=== PATIENT | female | born 1980 | race Hispanic/Latino ===

== ENCOUNTER 2017-04-17 17:06 | Emergency (ER) | payer OTHER ==
[~2017-04-17] VITALS: Ht 160 cm; Wt 93.0 kg
[2017-04-17] MEDS ORDERED: LABETALOL HCL 5 MG/ML 20ML VIAL IV STA ×2 (19:15→20:26)
[2017-04-17] MEDS ORDERED: ONDANSETRON HCL INJ 2 MG/ML VIAL IV STA (20:19)
[2017-04-17] MEDS ORDERED: MORPHINE SULFATE 2 MG/ML SYR IV STA ×2 (20:19→23:22)
[2017-04-17] MEDS ORDERED: MAGNESIUM SULFATE 2 GM/50 ML IV ONE (23:30)
[2017-04-17] MEDS ORDERED: MAGNESIUM SULFATE 2GM/50ML 50 ML IV ONE (23:30)
[2017-04-18] MEDS ORDERED: MAGNESIUM SULF IV ONE (00:30)
[2017-04-18] MEDS ORDERED: [UNRECOGNIZED DRUG - OTHER] IV ONE (00:30)
[2017-04-18] MEDS ORDERED: MAGNESIUM SULFATE 2GM/50ML 50 ML IV ONE (00:30)
[2017-04-18 01:13] VITALS: BP 157/80
[2017-04-18] MEDS ORDERED: LABETALOL HCL 5 MG/ML 20ML VIAL IV STA (02:01)
[2017-04-18] MEDS ORDERED: METHYLDOPA500 MG (05:03)
[2017-04-18] MEDS ORDERED: ASPIR 8181 MG (05:05)
[2017-04-18] MEDS ORDERED: LABETALOL HCL100 MG PO (05:05)
== END 2017-04-18 01:15 | disposition short-term general hospital (02) ==
LOC: FSED 17:06
DX: R07.9 Chest pain, unspecified (principal); R06.02 Shortness of breath; J81.0 Acute pulmonary edema; J90 Pleural effusion, not elsewhere classified; I10 Essential (primary) hypertension
CPT/HCPCS: 99284; J2270; J2405; J3490

== ENCOUNTER 2018-05-11 19:50 | Emergency (ER) | payer OTHER ==
[~2018-05-11] VITALS: Ht 160 cm; Wt 79.6 kg
[~2018-05-11 19:50] MED LIST: ASPIR 8181 MG; LABETALOL HCL100 MG PO; METHYLDOPA500 MG
--- OUTSIDE RECORDS SUMMARY | 2018-05-11 19:54 | XMS REPORT | Summary of Care ---
Author Author [facility] [place] Organization [facility] [place] Address Unknown Phone Unavailable Encounter HQ Encntr_min(FIN) [id number] Date(s): 06/21/17 - 06/21/17 [facility] [address] [place] [phone] Encounter Diagnosis Precordial pain (Final) - 06/28/17 Discharge Disposition: Home or Self Care Attending Physician: Juan Bonds MD Vital Signs No data available for this section Problem List Condition Effective Dates Status Health Status Informant Gestational Active diabetes(Confirmed) Hypertension(Confirm Resolved ed) Gestational Active hypertension(Confirm ed) (Confirmed) 04/10/17 - 04/12/17 Resolved (Confirmed) 04/13/16 - 06/08/16 Resolved (Confirmed) 05/31/06 - 02/07/07 Resolved (Confirmed) 09/16/04 - 12/09/04 Resolved Allergies, Adverse Reactions, Alerts Substance Reaction Severity Status NKDA Active Medications No data available for this section Results No data available for this section Immunizations Given and Recorded Vaccine Date Status Refusal Reason influenza virus vaccine, inactivated 04/15/17 Given RhoGam (MAR Charting)1 04/13/17 Given diphtheria/pertussis, acel/tetanus adult 04/13/17 Given 1Result Comment: VERIFIED WITH NELDA POPEenglish as a second language instructor Procedure Date Related Diagnosis Body Site Status Arm repair 1990 Completed Social History Social History Type Response Alcohol Past Smoking Status Former smoker; Type: Cigarettes; Ready to change: Yes; Exposure to Tobacco Smoke None; Cigarette Smoking Last 365 Days No; Reg Smoking Cessation Counseling Yes; Number of years: 20; Started at age: 17.0; entered on: 04/10/17 Assessment and Plan No data available for this section
--- OUTSIDE RECORDS SUMMARY | 2018-05-11 19:54 | XMS REPORT | Summary of Care ---
Author Author [facility] Organization [facility] Address Unknown Phone Unavailable Encounter KATY Castro(DEREK) [id number] Date(s): 04/18/17 - 04/21/17 [facility] [address] [facility] provided by [facility] [place] [address]- Encounter Diagnosis Pre-existing hypertension with pre-eclampsia, complicating the puerperium (Final) - 04/27/17 Chronic pulmonary edema (Final) - Unspecified pre-existing hypertension complicating the puerperium (Final) - Other complications of the puerperium, not elsewhere classified (Final) - Discharge Disposition: Home or Self Care Attending Physician: Mora Abebe MD Admitting Physician: Mora Abebe MD Referring Physician: Physician, Non Associated MD Vital Signs 1 2 3 Most recent to oldest [Reference Range]: 160.02 cm (04/18/17 2:31 AM) Height 97.6 DegF (04/21/17 9:01 AM) 98.1 DegF (04/21/17 4:13 AM) 98.1 DegF (04/21/17 12:36 AM) Temperature Oral [96.4-99.1 DegF] 138/88 mmHg (04/21/17 9:01 AM) 114/71 mmHg (04/21/17 4:13 AM) 135/79 mmHg (04/21/17 12:36 AM) Blood Pressure [90-140/60-90 mmHg] 18 BRMIN (04/21/17 9:01 AM) 18 BRMIN (04/21/17 4:13 AM) 18 BRMIN (04/21/17 12:36 AM) Respiratory Rate [14-20 BRMIN] 73 bpm (04/21/17 9:01 AM) 73 bpm (04/21/17 4:13 AM) 80 bpm (04/21/17 12:36 AM) Peripheral Pulse Rate [60-100 bpm] 93.182 kg (04/18/17 2:31 AM) Weight 36.39 m2 (04/18/17 2:31 AM) Body Mass Index Problem List Condition Effective Dates Status Health Status Informant Gestational Active diabetes(Confirmed) Hypertension(Confirm Resolved ed) Gestational Active hypertension(Confirm ed) (Confirmed) 04/10/17 - 04/12/17 Resolved (Confirmed) 04/13/16 - 06/08/16 Resolved (Confirmed) 05/31/06 - 02/07/07 Resolved (Confirmed) 09/16/04 - 12/09/04 Resolved Allergies, Adverse Reactions, Alerts Substance Reaction Severity Status NKDA Active Medications acetaminophen 650 mg, Route: PO, Drug form: TAB, Q4H, Dosing Weight 93.182, kg, PRN Other -See Comment, Start date: 04/18/17 2:41:00 TITLE I TEACHER, Duration: 30 day, Stop date: 05/18/17 2:40:00 TITLE I TEACHER Start Date: 04/18/17 Stop Date: 04/18/17 Status: Discontinued acetaminophen-hydrocodone 325 mg-10 mg oral tablet 1 tab, Route: PO, Dosing Weight 93.182, kg, Q4H, PRN Pain Score 7-10, Start date : 04/18/17 2:41:00 TITLE I TEACHER, Duration: 30 day, Stop date: 05/18/17 2:40:00 TITLE I TEACHER Start Date: 04/18/17 Stop Date: 04/18/17 Status: Discontinued acetaminophen-hydrocodone 325 mg-5 mg oral tablet 1 tab, Route: PO, Drug Form: TAB, Dosing Weight 93.182, kg, Q4H, PRN Pain Score 4-6, Start date: 04/18/17 2:41:00 TITLE I TEACHER, Duration: 30 day, Stop date: 05/18/17 2:4 0:00 TITLE I TEACHER Notes: (Same as: [place] 325/5) Do not exceed 4gm/day of acetaminophen. Start Date: 04/18/17 Stop Date: 04/21/17 Status: Discontinued aspirin 81 mg tablet, enteric coated 81 mg, 1 tab, Route: PO, Drug form: ECTAB, Daily, Dosing Weight 93.182, kg, Star t date: 04/18/17 9:00:00 TITLE I TEACHER, Duration: 30 day, Stop date: 05/17/17 9:00:00 TITLE I TEACHER Notes: Do not crush or chew.(Same As: Ecotrin) Start Date: 04/18/17 Stop Date: 04/21/17 Status: Discontinued aspirin 81 mg tablet, enteric coated 81 mg=1 tab, PO, Daily, # 90 tab, 3 Refill(s) Start Date: 04/18/17 Stop Date: 04/21/17 Status: Discontinued bisacodyl 10 mg, 1 supp, Route: IN, Drug form: SUPP, PRN, Dosing Weight 93.182, kg, PRN Ot her -See Comment, Start date: 04/18/17 2:41:00 TITLE I TEACHER, Duration: 30 day, Stop date: 05/18/17 2:40:00 TITLE I TEACHER Notes: (Same As: Dulcolax, Bisco-Lax) Start Date: 04/18/17 Stop Date: 04/21/17 Status: Discontinued bisacodyl 15 mg, 3 tab, Route: PO, Drug form: ECTAB, Daily, Dosing Weight 93.182, kg, PRN Other -See Comment, Start date: 04/18/17 2:41:00 TITLE I TEACHER, Duration: 30 day, Stop sophia e: 05/18/17 2:40:00 TITLE I TEACHER Notes: (Same As: Dulcolax, Correctol) (Do Not Crush) "Do Not Crush" Start Date: 04/18/17 Stop Date: 04/21/17 Status: Discontinued calcium gluconate 1 gm, 10 mL, Route: IVP, Drug form: INJ, ONCE, Dosing Weight 93.182, kg, PRN Oth er -See Comment, Start date: 04/18/17 2:37:00 TITLE I TEACHER Notes: WASTE: F/P - Sink; E - Municipal Trash Bin Start Date: 04/18/17 Stop Date: 04/21/17 Status: Discontinued carboprost 250 microgram, 1 mL, Route: IM, Drug form: INJ, ONCALL, Dosing Weight 93.182, kg , Start date: 04/18/17 3:00:00 TITLE I TEACHER, Duration: 30 day, Stop date: 05/18/17 2:59:0 0 TITLE I TEACHER Notes: (Same As: Hemabate) Start Date: 04/18/17 Stop Date: 04/21/17 Status: Discontinued citric acid-sodium citrate 30 mL, Route: PO, Drug Form: SOLN, Dosing Weight 93.182, kg, ONCE, Start date: 0 04/18/17 2:41:00 TITLE I TEACHER, Stop date: 04/18/17 2:41:00 TITLE I TEACHER Notes: (Same As: Bicitra) Start Date: 04/18/17 Stop Date: 04/25/17 Status: Discontinued docusate 100 mg, 1 cap, Route: PO, Drug form: CAP, BID, Dosing Weight 93.182, kg, PRN Con stipation, Start date: 04/18/17 2:41:00 TITLE I TEACHER, Duration: 30 day, Stop date: 2:40:00 TITLE I TEACHER Notes: (Same as: Colace) (Do Not Crush) Start Date: 04/18/17 Stop Date: 04/21/17 Status: Discontinued ibuprofen 600 mg, 1 tab, Route: PO, Drug form: TAB, Q6H, Dosing Weight 93.182, kg, Start d ate: 04/18/17 6:00:00 TITLE I TEACHER, Duration: 30 day, Stop date: 05/18/17 0:00:00 TITLE I TEACHER Notes: (Same as: Motrin)"Do Not Crush" Take with food. Start Date: 04/18/17 Stop Date: 04/21/17 Status: Discontinued labetalol 20 mg, 4 mL, Route: IVP, Drug form: INJ, ONCE, Dosing Weight 93.182, kg, Start d ate: 04/18/17 2:33:00 TITLE I TEACHER, Stop date: 04/18/17 2:33:00 TITLE I TEACHER Start Date: 04/18/17 Stop Date: 04/18/17 Status: Completed labetalol 100 mg, 1 tab, Route: PO, Drug form: TAB, TID, Dosing Weight 93.182, kg, Start d ate: 04/18/17 9:00:00 TITLE I TEACHER, Duration: 30 day, Stop date: 05/17/17 17:00:00 TITLE I TEACHER Notes: With food. (Same as:Trandate, Normodyne) Start Date: 04/18/17 Stop Date: 04/19/17 Status: Discontinued labetalol 200 mg, 1 tab, Route: PO, Drug form: TAB, Q8H, Dosing Weight 93.182, kg, Start d ate: 04/20/17 16:00:00 TITLE I TEACHER, Duration: 30 day, Stop date: 05/20/17 8:00:00 TITLE I TEACHER Notes: With food. (Same as:Trandate, Normodyne) Start Date: 04/20/17 Stop Date: 04/21/17 Status: Discontinued labetalol 100 mg oral tablet 100 mg=1 tab, PO, TID, # 60 tab, 0 Refill(s) Start Date: 04/18/17 Stop Date: 04/21/17 Status: Discontinued labetalol 200 mg oral tablet 200 mg=1 tab, PO, Q8H, # 180 tab, 1 Refill(s), Pharmacy: [facility] Start Date: 04/21/17 Status: Ordered lanolin topical cream 1 appl, Route: TOP, PRN, Drug form: OINT, PRN Other -See Comment, Start date: 2:41:00 TITLE I TEACHER, Duration: 30 day, Stop date: 05/18/17 2:40:00 TITLE I TEACHER Notes: (Same as:Lanolin) Start Date: 04/18/17 Stop Date: 04/21/17 Status: Discontinued Lasix 20 mg, 2 mL, Route: IVP, Drug form: INJ, ONCE, Dosing Weight 93.182, kg, Start d ate: 04/18/17 9:06:00 TITLE I TEACHER, Stop date: 04/18/17 9:06:00 TITLE I TEACHER Notes: (Same as: Lasix) Start Date: 04/18/17 Stop Date: 04/18/17 Status: Completed LR IV 1,000 mL 1,000 mL, Rate: 40 ml/hr, Infuse over: 25 hr, Route: IV, Dosing Weight 93.182 kg , Total Volume: 1,000, Start date: 04/18/17 8:25:00 TITLE I TEACHER, Duration: 30 day, Stop date: 05/18/17 8:24:00 TITLE I TEACHER, 2.07, m2 Start Date: 04/18/17 Stop Date: 04/21/17 Status: Discontinued M-M-R II 0.5 mL, Route: SUB-Q, Drug Form: PDR/INJ, Dosing Weight 93.182, kg, ONCALL, Star t date: 04/18/17 3:00:00 TITLE I TEACHER, Duration: 1 doses or times Notes: (Same as: M-M-R II) (godffie-fnaxd-ygbaknu virus vaccine 0.5 ml INJ VL)WA CHEL: F/P - Red; E -Red GIVE PRIOR TO DISCHARGE Start Date: 04/18/17 Stop Date: 04/21/17 Status: Discontinued magnesium sulfate 20 gm/500 ml solution 20 gm 500 mL, Rate: 50 ml/hr, Infuse over: 10 hr, Route: IV, Dosing Weight 93.182 kg, Total Volume: 500, Start date: 04/18/17 2:37:00 TITLE I TEACHER, Duration: 30 day, Stop date : 05/18/17 2:36:00 TITLE I TEACHER, 2.07, m2 Notes: (Same as: MgSO4)WASTE: F/P - Sink; E - Municipal Trash Bin Start Date: 04/18/17 Stop Date: 04/21/17 Status: Discontinued methyldopa 500 mg oral tablet 500 mg, 2 tab, Route: PO, Drug form: TAB, TID, Dosing Weight 93.182, kg, Priorit y: STAT, Start date: 04/18/17 3:50:00 TITLE I TEACHER, Duration: 30 day, Stop date: 05/17/17 17:00:00 TITLE I TEACHER Notes: May interfere w/enteral feedings. (Same as:Aldomet) Start Date: 04/18/17 Stop Date: 04/19/17 Status: Discontinued methylergonovine 0.2 mg, 1 mL, Route: IM, Drug form: INJ, ONCALL, Dosing Weight 93.182, kg, Start date: 04/18/17 3:00:00 TITLE I TEACHER, Duration: 30 day, Stop date: 05/18/17 2:59:00 TITLE I TEACHER Notes: (Same as:Methergine) Start Date: 04/18/17 Stop Date: 04/21/17 Status: Discontinued metoclopramide 10 mg, 2 mL, Route: IVP, Drug form: INJ, Q6H, Dosing Weight 93.182, kg, PRN Naus ea & Vomiting, Start date: 04/18/17 2:41:00 TITLE I TEACHER, Duration: 30 day, Stop date: 05/18/17 2:40:00 TITLE I TEACHER Notes: (Same as: Reglan) Start Date: 04/18/17 Stop Date: 04/21/17 Status: Discontinued misoprostol 1,000 microgram, 5 tab, Route: IN, Drug form: TAB, ONCALL, Dosing Weight 93.182, kg, Start date: 04/18/17 3:00:00 TITLE I TEACHER, Duration: 30 day, Stop date: 05/18/17 2:5 9:00 TITLE I TEACHER Notes: (Same as:Cytotec) Take with food Start Date: 04/18/17 Stop Date: 04/21/17 Status: Discontinued morphine Sulfate 2 mg, Route: IVP, Q2H, Dosing Weight 93.182, kg, PRN Pain Score 7-10, Start date : 04/18/17 2:41:00 TITLE I TEACHER, Duration: 30 day, Stop date: 05/18/17 2:40:00 TITLE I TEACHER Start Date: 04/18/17 Stop Date: 04/18/17 Status: Discontinued Nifedical XL 60 mg, 1 tab, Route: PO, Drug form: ERTAB, Daily, Dosing Weight 93.182, kg, Star t date: 04/19/17 9:00:00 TITLE I TEACHER, Duration: 30 day, Stop date: 05/18/17 9:00:00 TITLE I TEACHER Notes: (Same as: Adalat CC, Procardia XL) Give on empty stomach. Take 1 hour be fore or 2 hours after meal; "Avoid grapefruit and grapefruit juice". Do not cru sh Start Date: 04/19/17 Stop Date: 04/20/17 Status: Discontinued Nifedical XL 30 mg, 1 tab, Route: PO, Drug form: ERTAB, ONCE, Dosing Weight 93.182, kg, Prior ity: STAT, Start date: 04/20/17 8:50:00 TITLE I TEACHER, Stop date: 04/20/17 8:50:00 TITLE I TEACHER Notes: (Same as: Adalat CC, Procardia XL) Give on empty stomach. Take 1 hour be fore or 2 hours after meal; "Avoid grapefruit and grapefruit juice". Do not cru sh Start Date: 04/20/17 Stop Date: 04/20/17 Status: Completed ondansetron 4 mg, 2 mL, Route: IVP, Drug form: INJ, Q8H, Dosing Weight 93.182, kg, PRN Nause a & Vomiting, Start date: 04/18/17 2:41:00 TITLE I TEACHER, Duration: 30 day, Stop date: 05/18/17 2:40:00 TITLE I TEACHER Notes: (Same as: Tisha) MEDICATION WASTE Product Size: 4 mgProduct Was salvador: ___ mg Start Date: 04/18/17 Stop Date: 04/21/17 Status: Discontinued oxytocin 30 units in NS 500ml (Titrate) IV 30 unit 30 unit, 500 mL, Rate: 42 ml/hr, Infuse over: 11.9 hr, Dosing Weight 93.182, kg, Route: IV, Total Volume: 500 mL, Start date: 04/18/17 2:41:00 TITLE I TEACHER, Duration: 1 doses or times, Stop date: 04/18/17 14:34:00 TITLE I TEACHER, Replace Every: 11.9 hr Start Date: 04/18/17 Stop Date: 04/18/17 Status: Completed PNV-Total 1 cap, PO, Daily, 0 Refill(s) Start Date: 04/18/17 Stop Date: 04/21/17 Status: Discontinued Multivitamins oral tablet 1 tab, Route: PO, Drug Form: TAB, Dosing Weight 93.182, kg, Daily, Start date: 0 04/18/17 9:00:00 TITLE I TEACHER, Duration: 30 day, Stop date: 05/17/17 9:00:00 TITLE I TEACHER Start Date: 04/18/17 Stop Date: 04/21/17 Status: Discontinued Procardia XL 90 mg oral tablet, extended release 90 mg, 1 tab, Route: PO, Drug form: ERTAB, Daily, Dosing Weight 93.182, kg, Star t date: 04/21/17 9:00:00 TITLE I TEACHER, Duration: 30 day, Stop date: 05/20/17 9:00:00 TITLE I TEACHER Notes: (Same as: Adalat CC,Procardia XL)"Do Not Crush" "Avoid grapefruit and gr apefruit juice" Start Date: 04/21/17 Stop Date: 04/21/17 Status: Discontinued Procardia XL 90 mg oral tablet, extended release 90 mg=1 tab, PO, Daily, 0 Refill(s) Start Date: 04/21/17 Status: Ordered Saline Flush 0.9% 10 ml, Route: IVP, Drug Form: INJ, Dosing Weight 93.182, kg, Q12H, Start date: 0 04/18/17 9:00:00 TITLE I TEACHER, Duration: 30 day, Stop date: 05/17/17 21:00:00 TITLE I TEACHER Notes: (Same as: BD Posiflush) Start Date: 04/18/17 Stop Date: 04/21/17 Status: Discontinued Saline Flush 0.9% 10 ml, Route: IVP, Drug Form: INJ, Dosing Weight 93.182, kg, PRN, PRN Line Flush , Start date: 04/18/17 2:41:00 TITLE I TEACHER, Duration: 30 day, Stop date: 05/18/17 2:40:0 0 TITLE I TEACHER Notes: (Same as: BD Posiflush) Start Date: 04/18/17 Stop Date: 04/21/17 Status: Discontinued simethicone 160 mg, 2 tab, Route: PO, Drug form: CHEWTAB, Q8H, Dosing Weight 93.182, kg, PRN Gas, Start date: 04/18/17 2:41:00 TITLE I TEACHER, Duration: 30 day, Stop date: 05/18/17 2: 40:00 TITLE I TEACHER Notes: (Same as: Mylicon) Start Date: 04/18/17 Stop Date: 04/21/17 Status: Discontinued terbutaline 0.25 mg, 0.25 mL, Route: SUB-Q, Drug form: INJ, ONCALL, Dosing Weight 93.182, kg , PRN Other -See Comment, Start date: 04/18/17 2:41:00 TITLE I TEACHER, Duration: 1 doses or times, Stop date: Limited # of times Notes: DO NOT USE IN WIND SITE MANAGER AREA(Same As: Lefty) Start Date: 04/18/17 Stop Date: 04/21/17 Status: Discontinued tetanus/diphth/pertussis (Tdap) adult/adol 5 units-2 units-15.5 mcg/0.5 mL intra muscular suspension 0.5 mL, Route: IM, Drug Form: SUSP, Dosing Weight 93.182, kg, ONCALL, Start date : 04/18/17 3:00:00 TITLE I TEACHER, Duration: 1 doses or times Notes: (Tdap ) For Adolecent and Adult use For IM Use. Same as: Adacel (Tdap) Start Date: 04/18/17 Stop Date: 04/21/17 Status: Discontinued zolpidem 5 mg, 1 tab, Route: PO, Drug form: TAB, Bedtime, Dosing Weight 93.182, kg, PRN I nsomnia, Start date: 04/18/17 2:41:00 TITLE I TEACHER, Duration: 30 day, Stop date: 05/18/17 2:40:00 TITLE I TEACHER Notes: (Same As: Leonidesien) Start Date: 04/18/17 Stop Date: 04/21/17 Status: Discontinued Results BLOOD BANK RESULTS Most recent to 1 2 oldest [Reference Range]: ABO/Rh O NEG *Unknown* (04/18/17 2:56 AM) Antibody Scrn Positive (04/18/17 2:56 AM) CHEM PANEL Most recent to 1 2 oldest [Reference Range]: Creatinine Lvl 0.80 mg/dL 0.82 mg/dL [0.50-1.40 mg/dL] (04/19/17 6:42 AM) (04/18/17 2:56 AM) eGFR 96 mL/min/1.73m2 1 92 mL/min/1.73m2 2 *NA* *NA* (04/19/17 6:42 AM) (04/18/17 2:56 AM) Uric Acid [2.5-7.0 8.1 mg/dL 7.5 mg/dL mg/dL] *HI* *HI* (04/19/17 6:42 AM) (04/18/17 2:56 AM) ALT [0-65 unit/L] 43 unit/L 50 unit/L (04/19/17 6:42 AM) (04/18/17 2:56 AM) AST [0-37 unit/L] 18 unit/L 33 unit/L (04/19/17 6:42 AM) (04/18/17 2:56 AM) LDH [98-192 unit/L] 281 unit/L 289 unit/L *HI* *HI* (04/19/17 6:42 AM) (04/18/17 2:56 AM) 1Result Comment: The eGFR is calculated using the CKD-EPI formula. In most young, healthy individuals the eGFR will be >90 mL/min/1.73m2. The eGFR declines with age. An eGFR of 60-89 may be normal in some populations, particularly the elderly, for whom the CKD-EPI formula has not been extensively validated. Use of the eGFR is not recommended in the following populations: Individuals with unstable creatinine concentrations, including patients and those with serious co-morbid conditions. Patients with extremes in muscle mass or diet. The data above are obtained from the National Kidney Disease Education Program ( NKDEP) which additionally recommends that when the eGFR is used in patients with extremes of body mass index for purposes of drug dosing, the eGFR should be mul tiplied by the estimated BMI. 2Result Comment: The eGFR is calculated using the CKD-EPI formula. In most young, healthy individuals the eGFR will be >90 mL/min/1.73m2. The eGFR declines with age. An eGFR of 60-89 may be normal in some populations, particularly the elderly, for whom the CKD-EPI formula has not been extensively validated. Use of the eGFR is not recommended in the following populations: Individuals with unstable creatinine concentrations, including patients and those with serious co-morbid conditions. Patients with extremes in muscle mass or diet. The data above are obtained from the National Kidney Disease Education Program ( NKDEP) which additionally recommends that when the eGFR is used in patients with extremes of body mass index for purposes of drug dosing, the eGFR should be mul tiplied by the estimated BMI. HEMATOLOGY Most recent to 1 2 oldest [Reference Range]: WBC [3.7-10.4 K/CMM] 6.3 K/CMM 8.8 K/CMM (04/19/17 6:42 AM) (04/18/17 2:56 AM) RBC [4.20-5.40 3.77 M/CMM 3.56 M/CMM M/CMM] *LOW* *LOW* (04/19/17 6:42 AM) (04/18/17 2:56 AM) Hgb [12.0-16.0 g/dL] 10.8 g/dL 10.1 g/dL *LOW* *LOW* (04/19/17 6:42 AM) (04/18/17 2:56 AM) Hct [36.0-48.0 %] 31.3 % 29.9 % *LOW* *LOW* (04/19/17 6:42 AM) (04/18/17 2:56 AM) MCV [80.0-98.0 fL] 82.9 fL 84.0 fL (04/19/17 6:42 AM) (04/18/17 2:56 AM) MCH [27.0-31.0 pg] 28.6 pg 28.4 pg (04/19/17 6:42 AM) (04/18/17 2:56 AM) MCHC [32.0-36.0 34.5 g/dL 33.9 g/dL g/dL] (04/19/17 6:42 AM) (04/18/17 2:56 AM) RDW [11.5-14.5 %] 14.4 % 14.4 % (04/19/17 6:42 AM) (04/18/17 2:56 AM) MPV [7.4-10.4 fL] 7.3 fL 7.6 fL *LOW* (04/18/17 2:56 AM) (04/19/17 6:42 AM) Platelet [133-450 324 K/CMM 318 K/CMM K/CMM] (04/19/17 6:42 AM) (04/18/17 2:56 AM) Segs [45.0-75.0 %] 61.7 % 65.3 % (04/19/17 6:42 AM) (04/18/17 2:56 AM) Lymphocytes 22.7 % 21.0 % [20.0-40.0 %] (04/19/17 6:42 AM) (04/18/17 2:56 AM) Monocytes [2.0-12.0 11.1 % 10.6 % %] (04/19/17 6:42 AM) (04/18/17 2:56 AM) Eosinophils [0.0-4.0 4.0 % 2.7 % %] (04/19/17 6:42 AM) (04/18/17 2:56 AM) Basophils [0.0-1.0 0.5 % 0.4 % %] (04/19/17 6:42 AM) (04/18/17 2:56 AM) Segs-Bands # 3.9 K/CMM 5.8 K/CMM [1.5-8.1 K/CMM] (04/19/17 6:42 AM) (04/18/17 2:56 AM) Lymphocytes # 1.4 K/CMM 1.9 K/CMM [1.0-5.5 K/CMM] (04/19/17 6:42 AM) (04/18/17 2:56 AM) Monocytes # [0.0-0.8 0.7 K/CMM 0.9 K/CMM K/CMM] (04/19/17 6:42 AM) *HI* (04/18/17 2:56 AM) Eosinophils # 0.3 K/CMM 0.2 K/CMM [0.0-0.5 K/CMM] (04/19/17 6:42 AM) (04/18/17 2:56 AM) RBC Morph Normal (04/19/17 6:42 AM) Polychrom slight *NA* (04/18/17 2:56 AM) Toxic Gran slight *NA* (04/18/17 2:56 AM) Plt Morph Normal (04/19/17 6:42 AM) Immunizations Given and Recorded Vaccine Date Status Refusal Reason influenza virus vaccine, inactivated 04/15/17 Given RhoGam (MAR Charting)1 04/13/17 Given diphtheria/pertussis, acel/tetanus adult 04/13/17 Given 1Result Comment: VERIFIED WITH MORA POPEsales representative health insurance Procedure Date Related Diagnosis Body Site Status [...]
--- OUTSIDE RECORDS SUMMARY | 2018-05-11 19:54 | XMS REPORT | Summary of Care ---
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, controlled by oral hypoglycemic hany gs (Final) - Pre-existing essential hypertension complicating childbirth (Final) - Single live (Final) - Secondary uterine inertia (Final) - 34 weeks gestation of (Final) - Obstructed labor due to fetopelvic disproportion, unspecified (Final) - Encounter for immunization (Final) - Discharge Disposition: Home or Self Care Attending Physician: Maggy Marmolejo MD Admitting Physician: Maggy Marmolejo MD Vital Signs 1 2 3 Most recent to oldest [Reference Range]: 157.48 cm (04/10/17 11:51 AM) Height 98.2 DegF (04/15/17 4:56 PM) 97.4 DegF (04/15/17 9:00 AM) 98.1 DegF (04/15/17 4:10 AM) Temperature Oral [96.4-99.1 DegF] 120/82 mmHg (04/15/17 4:56 PM) 132/87 mmHg (04/15/17 9:00 AM) 145/92 mmHg *HI* (04/15/17 4:10 AM) Blood Pressure [90-140/60-90 mmHg] 18 BRMIN (04/15/17 4:56 PM) 18 BRMIN (04/15/17 9:00 AM) 18 BRMIN (04/15/17 4:10 AM) Respiratory Rate [14-20 BRMIN] 67 bpm (04/15/17 4:56 PM) 81 bpm (04/15/17 9:00 AM) 75 bpm (04/15/17 4:10 AM) Peripheral Pulse Rate [60-100 bpm] 96.364 kg (04/10/17 11:51 AM) Weight 38.86 m2 (04/10/17 11:51 AM) Body Mass Index Problem List Condition Effective Dates Status Health Status Informant Gestational Active diabetes(Confirmed) Hypertension(Confirm Resolved ed) Gestational Active hypertension(Confirm ed) (Confirmed) 04/10/17 - 04/12/17 Resolved (Confirmed) 04/13/16 - 06/08/16 Resolved (Confirmed) 05/31/06 - 02/07/07 Resolved (Confirmed) 09/16/04 - 12/09/04 Resolved Allergies, Adverse Reactions, Alerts Substance Reaction Severity Status NKDA Active Medications acetaminophen 1,000 mg, 2 tab, Route: PO, Drug form: TAB, Q6H, Dosing Weight 96.364, kg, Prior ity: NOW, Start date: 04/12/17 16:04:00 PROPERTY SUPERVISOR, Duration: 24 hr, Stop date: 8 12:00:00 PROPERTY SUPERVISOR Notes: Max acetaminophen 4000 mg/day (4 gm/day). (Same as: Tylenol Extra Streng th) Start Date: 04/12/17 Stop Date: 04/13/17 Status: Completed acetaminophen 650 mg, 2 tab, Route: PO, Drug form: TAB, Q4H, Dosing Weight 96.364, kg, PRN Oth er -See Comment, Start date: 04/12/17 17:03:00 PROPERTY SUPERVISOR, Duration: 30 day, Stop date: 05/12/17 17:02:00 PROPERTY SUPERVISOR Notes: Do not exceed 4 gm/day. (Same as: Tylenol) Start Date: 04/12/17 Stop Date: 04/12/17 Status: Discontinued acetaminophen (ANES) 10 mg Route: IV, Drug form: INJ, Start date: 04/12/17 15:54:00 PROPERTY SUPERVISOR, Stop date: 8 16:54:00 PROPERTY SUPERVISOR Start Date: 04/12/17 Stop Date: 04/12/17 Status: Completed acetaminophen-hydrocodone 325 mg-10 mg oral tablet 1 tab, Route: PO, Drug Form: TAB, Dosing Weight 96.364, kg, Q4H, PRN Pain Score 7-10, Start date: 04/13/17 12:01:00 PROPERTY SUPERVISOR, Duration: 30 day, Stop date: 05/13/17 2:00:00 PROPERTY SUPERVISOR Notes: Do not exceed 4gm/day of acetaminophen. (Same as: [place] 325/10) Start Date: 04/13/17 Stop Date: 04/15/17 Status: Discontinued acetaminophen-hydrocodone 325 mg-10 mg oral tablet 1 tab, Route: PO, Drug Form: TAB, Dosing Weight 96.364, kg, Q4H, PRN Pain Score 7-10, Start date: 04/12/17 17:03:00 PROPERTY SUPERVISOR, Duration: 30 day, Stop date: 05/12/17 7:02:00 PROPERTY SUPERVISOR Notes: Do not exceed 4gm/day of acetaminophen. (Same as: [place] 325/10) Start Date: 04/12/17 Stop Date: 04/12/17 Status: Discontinued acetaminophen-hydrocodone 325 mg-10 mg oral tablet 1 tab, Route: PO, Drug Form: TAB, Dosing Weight 96.364, kg, Q4H, PRN Pain Score 7-10, Start date: 04/13/17 7:53:00 PROPERTY SUPERVISOR, Duration: 30 day, Stop date: 05/13/17 7: 52:00 PROPERTY SUPERVISOR Notes: Do not exceed 4gm/day of acetaminophen. (Same as: [place] 325/10) Start Date: 04/13/17 Stop Date: 04/15/17 Status: Discontinued acetaminophen-hydrocodone 325 mg-5 mg oral tablet 1 tab, Route: PO, Drug Form: TAB, Dosing Weight 96.364, kg, Q4H, PRN Pain Score 4-6, Start date: 04/13/17 12:01:00 PROPERTY SUPERVISOR, Duration: 30 day, Stop date: 05/13/17 12 :00:00 PROPERTY SUPERVISOR Notes: (Same as: [place] 325/5) Do not exceed 4gm/day of acetaminophen. Start Date: 04/13/17 Stop Date: 04/15/17 Status: Discontinued acetaminophen-hydrocodone 325 mg-5 mg oral tablet 1 tab, Route: PO, Drug Form: TAB, Dosing Weight 96.364, kg, Q4H, PRN Pain Score 4-6, Start date: 04/12/17 17:03:00 PROPERTY SUPERVISOR, Duration: 30 day, Stop date: 05/12/17 17 :02:00 PROPERTY SUPERVISOR Notes: (Same as: [place] 325/5) Do not exceed 4gm/day of acetaminophen. Start Date: 04/12/17 Stop Date: 04/12/17 Status: Discontinued acetaminophen-hydrocodone 325 mg-5 mg oral tablet 1 tab, Route: PO, Drug Form: TAB, Dosing Weight 96.364, kg, Q4H, PRN Pain Score 4-6, Start date: 04/13/17 7:53:00 PROPERTY SUPERVISOR, Duration: 30 day, Stop date: 05/13/17 7:5 2:00 PROPERTY SUPERVISOR Notes: (Same as: [place] 325/5) Do not exceed 4gm/day of acetaminophen. Start Date: 04/13/17 Stop Date: 04/15/17 Status: Discontinued acetaminophen-hydrocodone 325 mg-5 mg oral tablet 2 tab, Route: PO, Drug Form: TAB, Dosing Weight 96.364, kg, Q4H, PRN Pain Score 7-10, Start date: 04/11/17 20:34:00 PROPERTY SUPERVISOR, Duration: 30 day, Stop date: 05/11/17 2 0:33:00 PROPERTY SUPERVISOR Notes: (Same as: [place] 325/5) Do not exceed 4gm/day of acetaminophen. Start Date: 04/11/17 Stop Date: 04/12/17 Status: Discontinued acetaminophen-hydrocodone 325 mg-5 mg oral tablet 1 tab, Route: PO, Drug Form: TAB, Dosing Weight 96.364, kg, Q4H, PRN Pain Score 4-6, Start date: 04/11/17 20:34:00 PROPERTY SUPERVISOR, Duration: 30 day, Stop date: 05/11/17 20 :33:00 PROPERTY SUPERVISOR Notes: (Same as: [place] 325/5) Do not exceed 4gm/day of acetaminophen. Start Date: 04/11/17 Stop Date: 04/12/17 Status: Discontinued aspirin 81 mg tablet, enteric coated 81 mg, 1 tab, Route: PO, Drug form: ECTAB, Daily, Dosing Weight 96.364, kg, Star t date: 04/11/17 9:00:00 PROPERTY SUPERVISOR, Duration: 30 day, Stop date: 05/10/17 9:00:00 PROPERTY SUPERVISOR Notes: Do not crush or chew.(Same As: Ecotrin) Start Date: 04/11/17 Stop Date: 04/15/17 Status: Discontinued azithromycin (ANES) 500 mg Route: IV, Drug form: INJ, Start date: 04/12/17 16:02:00 PROPERTY SUPERVISOR, Stop date: 8 17:02:00 PROPERTY SUPERVISOR Start Date: 04/12/17 Stop Date: 04/12/17 Status: Completed benzocaine-menthol topical 1 lozenge, Route: PO, Drug Form: NGA, Dosing Weight 96.364, kg, PRN, PRN Sore Th roat, Start date: 04/12/17 17:03:00 PROPERTY SUPERVISOR, Duration: 30 day, Stop date: 05/12/17 1 7:02:00 PROPERTY SUPERVISOR Notes: Cepacol lozengesDispense 1 box=16 lozenges (Same As: Cepacol Lozenges) Start Date: 04/12/17 Stop Date: 04/15/17 Status: Discontinued bisacodyl 10 mg, 1 supp, Route: AL, Drug form: SUPP, PRN, Dosing Weight 96.364, kg, PRN Ot her -See Comment, Start date: 04/12/17 17:03:00 PROPERTY SUPERVISOR, Duration: 30 day, Stop date : 05/12/17 17:02:00 PROPERTY SUPERVISOR Notes: (Same As: Dulcolax, Bisco-Lax) Start Date: 04/12/17 Stop Date: 04/13/17 Status: Discontinued bisacodyl 15 mg, 3 tab, Route: PO, Drug form: ECTAB, Daily, Dosing Weight 96.364, kg, PRN Other -See Comment, Start date: 04/13/17 7:53:00 PROPERTY SUPERVISOR, Duration: 30 day, Stop sophia e: 05/13/17 7:52:00 PROPERTY SUPERVISOR Notes: (Same As: Dulcolax, Correctol) (Do Not Crush) "Do Not Crush" Start Date: 04/13/17 Stop Date: 04/15/17 Status: Discontinued bisacodyl 10 mg, 1 supp, Route: AL, Drug form: SUPP, PRN, Dosing Weight 96.364, kg, PRN Ot her -See Comment, Start date: 04/13/17 7:53:00 PROPERTY SUPERVISOR, Duration: 30 day, Stop date: 05/13/17 7:52:00 PROPERTY SUPERVISOR Notes: (Same As: Dulcolax, Bisco-Lax) Start Date: 04/13/17 Stop Date: 04/15/17 Status: Discontinued butorphanol 2 mg, 1 mL, Route: IVP, Drug form: INJ, Q2H, Dosing Weight 96.364, kg, PRN Pain Score 7-10, Start date: 04/11/17 20:34:00 PROPERTY SUPERVISOR, Duration: 30 day, Stop date: 04/27 08/11 20:33:00 PROPERTY SUPERVISOR Notes: (Same As: Stadol) MEDICATION WASTE Product Size: 2 mgProduct Was salvador: ___ mg Start Date: 04/11/17 Stop Date: 04/12/17 Status: Discontinued butorphanol 1 mg, 1 mL, Route: IVP, Drug form: INJ, Q2H, Dosing Weight 96.364, kg, PRN Pain Score 4-6, Start date: 04/11/17 20:34:00 PROPERTY SUPERVISOR, Duration: 30 day, Stop date: 05/11 20:33:00 PROPERTY SUPERVISOR Notes: (Same As: Stadol) Start Date: 04/11/17 Stop Date: 04/12/17 Status: Discontinued carboprost 250 microgram, 1 mL, Route: IM, Drug form: INJ, ONCALL, Dosing Weight 96.364, kg , Start date: 04/11/17 21:00:00 PROPERTY SUPERVISOR, Duration: 30 day, Stop date: 05/11/17 20:59 :00 PROPERTY SUPERVISOR Notes: (Same As: Hemabate) Start Date: 04/11/17 Stop Date: 04/12/17 Status: Discontinued ceFAZolin (ANES) Route: IV, Drug form: INJ, ONCE, Stop date: 04/12/17 15:42:00 PROPERTY SUPERVISOR Start Date: 04/12/17 Stop Date: 04/12/17 Status: Completed Cervidil 10 mg, 1 supp, Route: VAG, Drug form: SUPP, ONCE, Dosing Weight 96.364, kg, Star t date: 04/11/17 20:34:00 PROPERTY SUPERVISOR, Stop date: 04/11/17 20:34:00 PROPERTY SUPERVISOR Notes: (Same as: Cervidil) Start Date: 04/11/17 Stop Date: 04/11/17 Status: Completed citric acid-sodium citrate 30 mL, Route: PO, Drug Form: SOLN, Dosing Weight 96.364, kg, ONCALL, Start date: 04/11/17 21:00:00 PROPERTY SUPERVISOR, Duration: 30 day, Stop date: 05/11/17 20:59:00 PROPERTY SUPERVISOR Notes: (Same As: Bicitra) Start Date: 04/11/17 Stop Date: 04/12/17 Status: Discontinued D5LR 1,000 mL 1,000 mL, Rate: 125 ml/hr, Infuse over: 8 hr, Route: IV, Dosing Weight 96.364 kg , Total Volume: 1,000, Start date: 04/12/17 13:09:00 PROPERTY SUPERVISOR, Duration: 30 day, Stop date: 05/12/17 13:08:00 PROPERTY SUPERVISOR, 2.09, m2 Start Date: 04/12/17 Stop Date: 04/15/17 Status: Discontinued Dermoplast 20% topical spray 1 spray, Route: TOP, PRN, Drug form: SPRY, PRN Irritation, Start date: 04/13/17 7:53:00 PROPERTY SUPERVISOR, Duration: 30 day, Stop date: 05/13/17 7:52:00 PROPERTY SUPERVISOR Notes: (Same As: Dermoplast)WASTE: Aerosol - Return to Pharmacy FOR EXTERNAL US E ONLY Start Date: 04/13/17 Stop Date: 04/15/17 Status: Discontinued dexamethasone 4 mg, 1 mL, Route: IVP, Drug form: INJ, Q6H, Dosing Weight 96.364, kg, PRN Nause a & Vomiting, Start date: 04/12/17 16:04:00 PROPERTY SUPERVISOR, Duration: 24 hr, Stop date: 04/13/17 16:03:00 PROPERTY SUPERVISOR Notes: Concentration: 4mg/ml Start Date: 04/12/17 Stop Date: 04/13/17 Status: Completed diphenhydrAMINE 12.5 mg, 5 mL, Route: PO, Drug form: LIQ, Q6H, Dosing Weight 96.364, kg, PRN Itc leatha, Start date: 04/12/17 16:04:00 PROPERTY SUPERVISOR, Duration: 30 day, Stop date: 05/12/17 1 6:03:00 PROPERTY SUPERVISOR Notes: (Same as: Benadryl) Start Date: 04/12/17 Stop Date: 04/15/17 Status: Discontinued docusate 100 mg, 1 cap, Route: PO, Drug form: CAP, BID, Dosing Weight 96.364, kg, PRN Con stipation, Start date: 04/12/17 17:03:00 PROPERTY SUPERVISOR, Duration: 30 day, Stop date: 05/12 17:02:00 PROPERTY SUPERVISOR Notes: (Same as: Colace) (Do Not Crush) Start Date: 04/12/17 Stop Date: 04/13/17 Status: Discontinued docusate 100 mg, 1 cap, Route: PO, Drug form: CAP, BID, Dosing Weight 96.364, kg, PRN Con stipation, Start date: 04/13/17 7:53:00 PROPERTY SUPERVISOR, Duration: 30 day, Stop date: 7:52:00 PROPERTY SUPERVISOR Notes: (Same as: Colace) (Do Not Crush) Start Date: 04/13/17 Stop Date: 04/15/17 Status: Discontinued famotidine 20 mg, 2 mL, Route: IVP, Drug form: INJ, ONCALL, Dosing Weight 96.364, kg, Start date: 04/11/17 21:00:00 PROPERTY SUPERVISOR, Duration: 30 day, Stop date: 05/11/17 20:59:00 PROPERTY SUPERVISOR Notes: (Same as: Pepcid)Can be dilute in 5-10cc NS IVP: Slow IV push over at le ast 2 minutes. Start Date: 04/11/17 Stop Date: 04/12/17 Status: Discontinued famotidine (ANES) Route: IV, Drug form: INJ, ONCE, Stop date: 04/12/17 15:42:00 PROPERTY SUPERVISOR Start Date: 04/12/17 Stop Date: 04/12/17 Status: Completed glyBURIDE 5 mg, 1 tab, Route: PO, Drug form: TAB, BID, Dosing Weight 96.364, kg, Start sophia e: 04/10/17 17:00:00 PROPERTY SUPERVISOR, Duration: 30 day, Stop date: 05/10/17 9:00:00 PROPERTY SUPERVISOR Notes: Non-Formulary(Same as: Micronase, Diabeta) Take with meals. Start Date: 04/10/17 Stop Date: 04/11/17 Status: Discontinued glyBURIDE 5 mg, 1 tab, Route: PO, Drug form: TAB, Daily, Dosing Weight 96.364, kg, Start d ate: 04/11/17 9:00:00 PROPERTY SUPERVISOR, Duration: 30 day, Stop date: 05/10/17 9:00:00 PROPERTY SUPERVISOR Notes: Non-Formulary(Same as: Micronase, Diabeta) Take with meals. Start Date: 04/11/17 Stop Date: 04/13/17 Status: Discontinued ibuprofen 600 mg, 1 tab, Route: PO, Drug form: TAB, Q6H, Dosing Weight 96.364, kg, Start d ate: 04/12/17 18:00:00 PROPERTY SUPERVISOR, Duration: 30 day, Stop date: 05/12/17 12:00:00 PROPERTY SUPERVISOR Notes: (Same as: Motrin)"Do Not Crush" Take with food. Start Date: 04/12/17 Stop Date: 04/15/17 Status: Discontinued ibuprofen 600 mg, 1 tab, Route: PO, Drug form: TAB, Q6H, Dosing Weight 96.364, kg, Start d ate: 04/13/17 12:00:00 PROPERTY SUPERVISOR, Duration: 30 day, Stop date: 05/13/17 6:00:00 PROPERTY SUPERVISOR Notes: (Same as: Motrin)"Do Not Crush" Take with food. Start Date: 04/13/17 Stop Date: 04/15/17 Status: Discontinued ibuprofen 600 mg, 1 tab, Route: PO, Drug form: TAB, Q6H, Dosing Weight 96.364, kg, PRN Oth er -See Comment, Start date: 04/11/17 20:34:00 PROPERTY SUPERVISOR, Duration: 30 day, Stop date: 05/11/17 20:33:00 PROPERTY SUPERVISOR Notes: (Same as: Motrin)"Do Not Crush" Take with food. Start Date: 04/11/17 Stop Date: 04/12/17 Status: Discontinued influenza virus vaccine, inactivated 0.5 mL, Route: IM, Drug Form: SUSP, Daily, Start date: 04/11/17 9:00:00 PROPERTY SUPERVISOR, Dur ation: 1 doses or times, Stop date: 04/11/17 9:00:00 PROPERTY SUPERVISOR Notes: (Same as: Fluzone Quadrivalent, Fluarix Quadrivalent)For 3 years of age a nd older (0.5 mL IM)Shake well before use Start Date: 04/11/17 Stop Date: 04/15/17 Status: Deleted influenza virus vaccine, inactivated 0.5 mL, Route: IM, Drug Form: SUSP, Daily, Start date: 04/15/17 9:05:00 PROPERTY SUPERVISOR, Dur ation: 1 doses or times, Stop date: 04/15/17 9:05:00 PROPERTY SUPERVISOR Notes: (Same as: Fluzone Quadrivalent, Fluarix Quadrivalent)For 3 years of age a nd older (0.5 mL IM)Shake well before use Start Date: 04/15/17 Stop Date: 04/15/17 Status: Completed ketOROLAC 30 mg, 1 mL, Route: IVP, Drug form: INJ, Q6H, Dosing Weight 96.364, kg, PRN Pain Score 4-6, Start date: 04/12/17 16:04:00 PROPERTY SUPERVISOR, Duration: 24 hr, Stop date: 04/13 16:03:00 PROPERTY SUPERVISOR Notes: (Same as:Toradol) IV bolus must be given >15 seconds. Give IM administration slowly and deeply into the muscle.Not for use > 4 days MEDICATION WASTE Product Size: 30 mgProduct Wasted: ___ mg Start Date: 04/12/17 Stop Date: 04/13/17 Status: Completed labetalol 100 mg, 1 tab, Route: PO, Drug form: TAB, TID, Dosing Weight 96.364, kg, Start d ate: 04/12/17 17:00:00 PROPERTY SUPERVISOR, Duration: 30 day, Stop date: 05/12/17 13:00:00 PROPERTY SUPERVISOR Notes: With food. (Same as:Trandate, Normodyne) Start Date: 04/12/17 Stop Date: 04/12/17 Status: Discontinued labetalol 300 mg, 1 tab, Route: PO, Drug form: TAB, TID, Dosing Weight 96.364, kg, Start d ate: 04/12/17 18:00:00 PROPERTY SUPERVISOR, Duration: 30 day, Stop date: 05/12/17 10:00:00 PROPERTY SUPERVISOR Notes: With food. (Same as:Trandate, Normodyne) Start Date: 04/12/17 Stop Date: 04/15/17 Status: Discontinued labetalol 100 mg, 1 tab, Route: PO, Drug form: TAB, TID, Dosing Weight 96.364, kg, Start d ate: 04/10/17 13:00:00 PROPERTY SUPERVISOR, Duration: 30 day, Stop date: 05/10/17 9:00:00 PROPERTY SUPERVISOR Notes: With food. (Same as:Trandate, Normodyne) Start Date: 04/10/17 Stop Date: 04/12/17 Status: Discontinued Lactated Ringers (Bolus) IV 1,000 mL, 1,000 ml/hr, Infuse Over: 1 hr, Route: IV, 1,000, Drug form: INJ, ONCE , Dosing Weight 96.364 kg, Start date: 04/11/17 20:34:00 PROPERTY SUPERVISOR, Stop date: 8 20:34:00 PROPERTY SUPERVISOR, Bolus for regional anesthesia per unit protocol Start Date: 04/11/17 Stop Date: 04/12/17 Status: Discontinued Lactated Ringers Injection IV (ANES) 1000 mL Route: IV, Total Volume: 1,000, Start date: 04/12/17 14:40:00 PROPERTY SUPERVISOR, Stop date: 15:40:00 PROPERTY SUPERVISOR Start Date: 04/12/17 Stop Date: 04/12/17 Status: Completed Lactated Ringers IV 1,000 mL 1,000 mL, Rate: 125 ml/hr, Infuse over: 8 hr, Route: IV, Dosing Weight 96.364 kg , Total Volume: 1,000, Start date: 04/10/17 13:34:00 PROPERTY SUPERVISOR, Duration: 30 day, Stop date: 05/10/17 13:33:00 PROPERTY SUPERVISOR, 2.09, m2 Start Date: 04/10/17 Stop Date: 04/11/17 Status: Discontinued Lactated Ringers IV 1,000 mL 1,000 mL, Rate: 100 ml/hr, Infuse over: 10 hr, Route: IV, Dosing Weight 96.364 k g, Total Volume: 1,000, Start date: 04/12/17 17:03:00 PROPERTY SUPERVISOR, Duration: 30 day, Sto p date: 05/12/17 17:02:00 PROPERTY SUPERVISOR, 2.09, m2 Start Date: 04/12/17 Stop Date: 04/13/17 Status: Discontinued Lactated Ringers IV 1,000 mL 1,000 mL, Rate: 100 ml/hr, Infuse over: 10 hr, Route: IV, Dosing Weight 96.364 k g, Total Volume: 1,000, Start date: 04/13/17 7:53:00 PROPERTY SUPERVISOR, Duration: 30 day, Stop date: 05/13/17 7:52:00 PROPERTY SUPERVISOR, 2.09, m2 Start Date: 04/13/17 Stop Date: 04/15/17 Status: Discontinued Lactated Ringers IV 1,000 mL 1,000 mL, Rate: 125 ml/hr, Infuse over: 8 hr, Route: IV, Dosing Weight 96.364 kg , Total Volume: 1,000, Start date: 04/11/17 20:34:00 PROPERTY SUPERVISOR, Duration: 30 day, Stop date: 05/11/17 20:33:00 PROPERTY SUPERVISOR, 2.09, m2 Start Date: 04/11/17 Stop Date: 04/12/17 Status: Discontinued lanolin topical 1 appl, Route: TOP, PRN, Drug form: OINT, PRN Other -See Comment, Start date: 7:53:00 PROPERTY SUPERVISOR, Duration: 30 day, Stop date: 05/13/17 7:52:00 PROPERTY SUPERVISOR Notes: (Same as:Lanolin) Start Date: 04/13/17 Stop Date: 04/15/17 Status: Discontinued lanolin topical cream 1 appl, Route: TOP, PRN, Drug form: OINT, PRN Other -See Comment, Start date: 17:03:00 PROPERTY SUPERVISOR, Duration: 30 day, Stop date: 05/12/17 17:02:00 PROPERTY SUPERVISOR Start Date: 04/12/17 Stop Date: 04/13/17 Status: Discontinued lidocaine (ANES) Route: EPIDURAL, Drug form: INJ, ONCE, Stop date: 04/12/17 15:42:00 PROPERTY SUPERVISOR Start Date: 04/12/17 Stop Date: 04/12/17 Status: Completed lidocaine 1% 200 mg, 20 mL, Route: PERCUT, Drug Form: INJ, Dosing Weight 96.364, kg, PRN, PRN Other -See Comment, Start date: 04/11/17 20:34:00 PROPERTY SUPERVISOR, Duration: 1 doses or kelvin es, Stop date: Limited # of times Notes: (Same as: Xylocaine) Start Date: 04/11/17 Stop Date: 04/12/17 Status: Discontinued lidocaine 1% injectable solution 2.5 mg, 0.25 mL, Route: INTRADERM, Drug Form: INJ, Dosing Weight 96.364, kg, PRN , PRN Other -See Comment, Start date: 04/11/17 20:34:00 PROPERTY SUPERVISOR, Duration: 30 day, S top date: 05/11/17 20:33:00 PROPERTY SUPERVISOR Notes: (Same as: Xylocaine) Start Date: 04/11/17 Stop Date: 04/12/17 Status: Discontinued M-M-R II 0.5 mL, Route: SUB-Q, Drug Form: PDR/INJ, Dosing Weight 96.364, kg, ONCALL, Star t date: 04/12/17 18:00:00 PROPERTY SUPERVISOR, Duration: 1 doses or times Notes: (Same as: M-M-R II) (ikumafc-rrfuz-uogbdsz virus vaccine 0.5 ml INJ VL)WA CHEL: F/P - Red; E -Red GIVE PRIOR TO DISCHARGE Start Date: 04/12/17 Stop Date: 04/15/17 Status: Discontinued M-M-R II 0.5 mL, Route: SUB-Q, Drug Form: PDR/INJ, Dosing Weight 96.364, kg, ONCALL, Give only if patient rubella non-immune, Start date: 04/13/17 8:00:00 PROPERTY SUPERVISOR, Duration: 1 doses or times Notes: (Same as: M-M-R II) (loywaps-tmnbu-vdoztka virus vaccine 0.5 ml INJ VL)WI CHEL: F/P - Red; E -Red GIVE PRIOR TO DISCHARGE Start Date: 04/13/17 Stop Date: 04/15/17 Status: Discontinued meperidine 12.5 mg, 0.5 mL, Route: IVP, Drug form: INJ, ONCE, Dosing Weight 96.364, kg, Sta rt date: 04/12/17 16:04:00 PROPERTY SUPERVISOR, Stop date: 04/12/17 16:04:00 PROPERTY SUPERVISOR Notes: (Same as: Demerol) "Use Precaution in Elderly, Seizure disorders, and Re nal impairment" Start Date: 04/12/17 Stop Date: 04/19/17 Status: Discontinued methyldopa 500 mg, 2 tab, Route: PO, Drug form: TAB, TID, Dosing Weight 96.364, kg, Start d ate: 04/10/17 13:00:00 PROPERTY SUPERVISOR, Duration: 30 day, Stop date: 05/10/17 9:00:00 PROPERTY SUPERVISOR Notes: May interfere w/enteral feedings. (Same as:Aldomet) Start Date: 04/10/17 Stop Date: 04/12/17 Status: Discontinued methyldopa 250 mg oral tablet 500 mg, 2 tab, Route: PO, Drug form: TAB, TID, Dosing Weight 96.364, kg, Start d ate: 04/15/17 13:00:00 PROPERTY SUPERVISOR, Duration: 30 day, Stop date: 05/15/17 9:00:00 PROPERTY SUPERVISOR Notes: May interfere w/enteral feedings. (Same as:Aldomet) Start Date: 04/15/17 Stop Date: 04/15/17 Status: Discontinued methyldopa 500 mg oral tablet 500 mg=1 tab, PO, TID, # 90 tab, 0 Refill(s), Pharmacy: [id number] Start Date: 04/15/17 Stop Date: 04/21/17 Status: Discontinued methyldopa 500 mg oral tablet 500 mg, 2 tab, Route: PO, Drug form: TAB, TID, Dosing Weight 96.364, kg, Start d ate: 04/12/17 17:00:00 PROPERTY SUPERVISOR, Duration: 30 day, Stop date: 05/12/17 13:00:00 PROPERTY SUPERVISOR Notes: May interfere w/enteral feedings. (Same as:Aldomet) Start Date: 04/12/17 Stop Date: 04/15/17 Status: Discontinued methylergonovine 0.2 mg, 1 mL, Route: IM, Drug form: INJ, PRN, Dosing Weight 96.364, kg, PRN Othe r -See Comment, Start date: 04/13/17 7:53:00 PROPERTY SUPERVISOR, Duration: 30 day, Stop date: 0 05/13/17 7:52:00 PROPERTY SUPERVISOR Notes: (Same as:Methergine) Start Date: 04/13/17 Stop Date: 04/15/17 Status: Discontinued methylergonovine 0.2 mg, 1 mL, Route: IM, Drug form: INJ, ONCALL, Dosing Weight 96.364, kg, Start date: 04/11/17 21:00:00 PROPERTY SUPERVISOR, Duration: 30 day, Stop date: 05/11/17 20:59:00 PROPERTY SUPERVISOR Notes: (Same as:Methergine) Start Date: 04/11/17 Stop Date: 04/12/17 Status: Discontinued metoclopramide (ANES) Route: IV, Drug form: INJ, ONCE, Stop date: 04/12/17 15:42:00 PROPERTY SUPERVISOR Start Date: 04/12/17 Stop Date: 04/12/17 Status: Completed misoprostol 1,000 microgram, 5 tab, Route: AL, Drug form: TAB, ONCALL, Dosing Weight 96.364, kg, Start date: 04/11/17 21:00:00 PROPERTY SUPERVISOR, Duration: 1 doses or times Notes: (Same as:Cytotec) Take with food Start Date: 04/11/17 Stop Date: 04/12/17 Status: Discontinued morphine Sulfate 2 mg, 0.5 mL, Route: IVP, Drug form: INJ, Q4H, Dosing Weight 96.364, kg, PRN Ryan n Score 7-10, Start date: 04/12/17 16:04:00 [employer], Duration: 30 day, Stop date: 16:03:00 [employer] SUPER[employer]OR Notes: (Same as:MORPhine Sulfate) Start Date: 04/12/17 Stop Date: 04/15/17 Status: Discontinued morphine Sulfate 2 mg, 1 mL, Route: IVP, Drug form: INJ, Q2H, Dosing Weight 96.364, kg, PRN Pain Score 7-10, Start date: 04/15/17 11:11:00 [employer] SUPER[employer], Duration: 30 day, Stop date: 04/27 12/12 11:10:00 [employer]ERTY SUPER[employer]OR Notes: (Same as:MORPhine Sulfate) Start Date: 04/15/17 Stop Date: 04/15/17 Status: Discontinued morphine Sulfate (ANES) Route: EPIDURAL, Drug form: INJ, ONCE, Stop date: 04/12/17 16:27:00 [employer] Start Date: 04/12/17 Stop Date: 04/12/17 Status: Completed multivitamin, 1 tab, Route: PO, Drug Form: TAB, Dosing Weight 96.364, kg, Daily, Start date: 0 04/11/17 9:00:00 [employer] SU[employer], Duration: 30 day, Stop date: 05/10/17 9:00:00 [employer] SUPER[employer] Start Date: 04/11/17 Stop Date: 04/11/17 Status: Discontinued naloxone 0.1 mg, 0.25 mL, Route: SUB-Q, Drug form: INJ, Q6H, Dosing Weight 96.364, kg, AL N Itching, Start date: 04/12/17 16:04:00 [employer] SUPER[employer], Duration: 24 hr, Stop date: 16:03:00 PROPERTY SUPER[employer]OR Notes: Same as Narcan Start Date: 04/12/17 Stop Date: 04/13/17 Status: Completed naloxone 0.4 mg, 1 mL, Route: IVP, Drug form: INJ, ONCALL, Dosing Weight 96.364, kg, Star t date: 04/12/17 17:00:00 PROPERTY SUPERVISOR, Duration: 24 hr, Stop date: 04/13/17 16:59:00 PROPERTY SUPERVISOR Notes: Same as Narcan Start Date: 04/12/17 Stop Date: 04/15/17 Status: Discontinued ondansetron 4 mg, 2 mL, Route: IVP, Drug form: INJ, Q6H, Dosing Weight 96.364, kg, PRN Nause a & Vomiting, Start date: 04/12/17 16:04:00 PROPERTY SUPERVISOR, Duration: 24 hr, Stop date: 04/13/17 16:03:00 PROPERTY SUPERVISOR Notes: (Same as: Tisha) MEDICATION WASTE Product Size: 4 mgProduct Was salvador: ___ mg Start Date: 04/12/17 Stop Date: 04/13/17 Status: Completed ondansetron 4 mg, 2 mL, Route: IVP, Drug form: INJ, Q8H, Dosing Weight 96.364, kg, PRN Nause a & Vomiting, Start date: 04/15/17 11:11:00 PROPERTY SUPERVISOR, Duration: 30 day, Stop date: 05/15/17 11:10:00 PROPERTY SUPERVISOR Notes: (Same as: Tisha) MEDICATION WASTE Product Size: 4 mgProduct Was salvador: ___ mg Start Date: 04/15/17 Stop Date: 04/15/17 Status: Discontinued ondansetron 4 mg, Route: IVP, Q8H, Dosing Weight 96.364, kg, PRN Nausea & Vomiting, Start date: 04/13/17 7:53:00 PROPERTY SUPERVISOR, Duration: 30 day, Stop date: 05/13/17 7:52:00 PROPERTY SUPERVISOR Start Date: 04/13/17 Stop Date: 04/13/17 Status: Deleted ondansetron 4 mg, 2 mL, Route: IVP, Drug form: INJ, Q8H, Dosing Weight 96.364, kg, PRN Nause a & Vomiting, Start date: 04/11/17 20:34:00 PROPERTY SUPERVISOR, Duration: 30 day, Stop date: 05/11/17 20:33:00 PROPERTY SUPERVISOR Notes: (Same as: Tisha) MEDICATION WASTE Product Size: 4 mgProduct Was salavdor: ___ mg Start Date: 04/11/17 Stop Date: 04/12/17 Status: Discontinued ondansetron (ANES) Route: IV, Drug form: INJ, ONCE, Stop date: 04/12/17 16:32:00 PROPERTY SUPERVISOR Start Date: 04/12/17 Stop Date: 04/12/17 Status: Completed oxytocin 30 units in NS 500ml (Titrate) IV 30 unit 30 unit, 500 mL, Rate: Titrate, Dosing Weight 96.364, kg, Route: IV, Total Volum e: 500 mL, Start date: 04/12/17 8:00:00 PROPERTY SUPERVISOR, Duration: 2 day, Stop date: 8 7:59:00 PROPERTY SUPERVISOR, Replace Every: 24 hr Start Date: 04/12/17 Stop Date: 04/12/17 Status: Discontinued oxytocin 30 units in NS 500ml (Titrate) IV 30 unit 30 unit, 500 mL, Rate: Titrate, Dosing Weight 96.364, kg, Route: IV, Total Volum e: 500 mL, Start date: 04/12/17 9:28:00 PROPERTY SUPERVISOR, Duration: 2 day, Stop date: 8 9:27:00 PROPERTY SUPERVISOR, Replace Every: 24 hr Start Date: 04/12/17 Stop Date: 04/12/17 Status: Discontinued oxytocin 30 units in NS 500ml (Titrate) IV 30 unit 30 unit, 500 mL, Rate: 42 ml/hr, Infuse over: 11.9 hr, Dosing Weight 96.364, kg, Route: IV, Total Volume: 500 mL, Start date: 04/12/17 17:03:00 PROPERTY SUPERVISOR, Duration: 2 day, Stop date: 04/14/17 17:02:00 PROPERTY SUPERVISOR, Replace Every: 11.9 hr Start Date: 04/12/17 Stop Date: 04/13/17 Status: Discontinued oxytocin 30 units in NS 500ml (Titrate) IV 30 unit 30 unit, 500 mL, Rate: 42 ml/hr, Infuse over: 11.9 hr, Dosing Weight 96.364, kg, Route: IV, Total Volume: 500 mL, Start date: 04/13/17 7:53:00 PROPERTY SUPERVISOR, Duration: 2 day, Stop date: 04/15/17 7:52:00 PROPERTY SUPERVISOR, Replace Every: 11.9 hr Start Date: 04/13/17 Stop Date: 04/15/17 Status: Completed oxytocin 30 units in NS 500ml (Titrate) IV 30 unit 30 unit, 500 mL, Rate: 42 ml/hr, Infuse over: 11.9 hr, Dosing Weight 96.364, kg, Route: IV, Total Volume: 500 mL, Start date: 04/11/17 20:34:00 PROPERTY SUPERVISOR, Duration: 2 day, Stop date: 04/13/17 20:33:00 PROPERTY SUPERVISOR, Replace Every: 11.9 hr Start Date: 04/11/17 Stop Date: 04/12/17 Status: Discontinued penicillin G potassium 2,500,000 unit, 50 mL, Route: IVPB, Drug form: INJ, ABXQ4H, Dosing Weight 96.364 , kg, Start date: 04/12/17 0:00:00 PROPERTY SUPERVISOR, Duration: 30 day, Stop date: 05/11/17 20 :00:00 PROPERTY SUPERVISOR Start Date: 04/12/17 Stop Date: 04/12/17 Status: Discontinued penicillin G potassium 5,000,000 units injection 5,000,000 unit, Route: IVPB, Drug form: PDR/INJ, ONCALL, Dosing Weight 96.364, k g, Start date: 04/11/17 20:00:00 PROPERTY SUPERVISOR, Duration: 30 day, Stop date: 05/11/17 19:5 9:00 PROPERTY SUPERVISOR Notes: (Same as: Pfizerpen) MEDICATION WASTE Product Size: 5,000,000 un itProduct Wasted: ___ unit Start Date: 04/11/17 Stop Date: 04/11/17 Status: Completed phenylephrine (ANES) Route: IVP, Drug form: INJ, ONCE, Stop date: 04/12/17 16:44:00 PROPERTY SUPERVISOR Start Date: 04/12/17 Stop Date: 04/12/17 Status: Completed Pitocin (ANES) Route: IV, Drug form: SOLN, ONCE, Stop date: 04/12/17 16:27:00 PROPERTY SUPERVISOR Start Date: 04/12/17 Stop Date: 04/12/17 Status: Completed Pitocin (ANES) 30 unit + Route: IV, Drug form: SOLN, Dosing Weight 96.4, kg, Start date: 04/12/17 15:43:0 0 PROPERTY SUPERVISOR, Stop date: 04/12/17 16:43:00 PROPERTY SUPERVISOR Start Date: 04/12/17 Stop Date: 04/12/17 Status: Completed Multivitamins oral tablet 1 tab, Route: PO, Drug Form: TAB, Dosing Weight 96.364, kg, Daily, Start date: 0 04/13/17 9:00:00 PROPERTY SUPERVISOR, Duration: 30 day, Stop date: 05/12/17 9:00:00 PROPERTY SUPERVISOR Start Date: 04/13/17 Stop Date: 04/15/17 Status: Discontinued Multivitamins oral tablet 1 tab, Route: PO, Drug Form: TAB, Dosing Weight 96.364, kg, Daily, Start date: 0 04/13/17 9:00:00 PROPERTY SUPERVISOR, Duration: 30 day, Stop date: 05/12/17 9:00:00 PROPERTY SUPERVISOR Start Date: 04/13/17 Stop Date: 04/13/17 Status: Discontinued promethazine 6.25 mg, 0.25 mL, Route: IVPB, Drug form: INJ, Q6H, Dosing Weight 96.364, kg, AL N Nausea & Vomiting, Start date: 04/12/17 16:04:00 PROPERTY SUPERVISOR, Duration: 24 hr, Stop date: 04/13/17 16:03:00 PROPERTY SUPERVISOR Notes: Do not give IV push. (Same as: Phenergan) Start Date: 04/12/17 Stop Date: 04/13/17 Status: Completed propofol (ANES) Route: IV, Drug form: INJ, ONCE, Stop date: 04/12/17 16:32:00 PROPERTY SUPERVISOR Start Date: 04/12/17 Stop Date: 04/12/17 Status: Completed Remove - dinoprostone (Cervidil) insert 1 ea, Route: VAG, Drug Form: INS, Dosing Weight 96.364, kg, ONCALL, Start date: 04/12/17 9:00:00 PROPERTY SUPERVISOR, Duration: 30 day, Stop date: 05/12/17 8:59:00 PROPERTY SUPERVISOR Notes: Vaginal insert: to be removed 1 hour prior to oxytocin administration or 12 hours after insertion. Start Date: 04/12/17 Stop Date: 04/12/17 Status: Discontinued RhoGam (MAR Charting) 300 microgram, Route: IM, ONCE, Dosing Weight 96.364, kg, Start date: 04/13/17 1 5:58:00 PROPERTY SUPERVISOR, Stop date: 04/13/17 15:58:00 PROPERTY SUPERVISOR Start Date: 04/13/17 Stop Date: 04/19/17 Status: Discontinued simethicone 160 mg, 2 tab, Route: PO, Drug form: CHEWTAB, Q8H, Dosing Weight 96.364, kg, PRN Gas, Start date: 04/12/17 17:03:00 PROPERTY SUPERVISOR, Duration: 30 day, Stop date: 05/12/17 1 7:02:00 PROPERTY SUPERVISOR Notes: (Same as: Kelly) Start Date: 04/12/17 Stop Date: 04/15/17 Status: Discontinued sodium bicarbonate (ANES) Route: EPIDURAL, Drug form: INJ, ONCE, Stop date: 04/12/17 15:42:00 PROPERTY SUPERVISOR Start Date: 04/12/17 Stop Date: 04/12/17 Status: Completed sodium citrate (ANES) Route: PO, Drug Form: INJ, ONCE, Stop date: 04/12/17 15:42:00 PROPERTY SUPERVISOR Start Date: 04/12/17 Stop Date: 04/12/17 Status: Completed succinylcholine (ANES) Route: IV, Drug form: INJ, ONCE, Stop date: 04/12/17 16:32:00 PROPERTY SUPERVISOR Start Date: 04/12/17 Stop Date: 04/12/17 Status: Completed terbutaline 0.25 mg, 0.25 mL, Route: SUB-Q, Drug form: INJ, PRN, Dosing Weight 96.364, kg, P RN Other -See Comment, Start date: 04/11/17 20:34:00 PROPERTY SUPERVISOR, Duration: 1 doses or t imes, Stop date: Limited # of times Notes: DO NOT USE IN LOAD MIXER AREA(Same As: Lefty) Start Date: 04/11/17 Stop Date: 04/12/17 Status: Discontinued tetanus/diphth/pertussis (Tdap) adult/adol 5 units-2 units-15.5 mcg/0.5 mL intra muscular suspension 0.5 mL, Route: IM, Drug Form: SUSP, Dosing Weight 96.364, kg, ONCALL, Start date : 04/13/17 8:00:00 PROPERTY SUPERVISOR, Duration: 1 doses or times Notes: (Tdap ) For Adolecent and Adult use For IM Use. Same as: Adacel (Tdap) Start Date: 04/13/17 Stop Date: 04/15/17 Status: Discontinued Tylenol 650 mg, 2 tab, Route: PO, Drug form: TAB, Q6H, Dosing Weight 96.364, kg, PRN Ryan n Score 1-3, Start date: 04/11/17 15:47:00 PROPERTY SUPERVISOR, Duration: 30 day, Stop date: 15:46:00 PROPERTY SUPERVISOR Notes: Do not exceed 4 gm/day. (Same as: Tylenol) Start Date: 04/11/17 Stop Date: 04/15/17 Status: Discontinued Tylenol 650 mg, 2 tab, Route: PO, Drug form: TAB, Q4H, Dosing Weight 96.364, kg, PRN Oth er -See Comment, Start date: 04/13/17 12:01:00 PROPERTY SUPERVISOR, Duration: 30 day, Stop date: 05/13/17 12:00:00 PROPERTY SUPERVISOR Notes: Do not exceed 4 gm/day. (Same as: Tylenol) Start Date: 04/13/17 Stop Date: 04/15/17 Status: Discontinued zolpidem 5 mg, 1 tab, Route: PO, Drug form: TAB, Bedtime, Dosing Weight 96.364, kg, PRN I nsomnia, Start date: 04/12/17 17:03:00 PROPERTY SUPERVISOR, Duration: 30 day, Stop date: 8 17:02:00 PROPERTY SUPERVISOR Notes: (Same As: Ambien) Start Date: 04/12/17 Stop Date: 04/15/17 Status: Discontinued zolpidem 5 mg, 1 tab, Route: PO, Drug form: TAB, Bedtime, Dosing Weight 96.364, kg, PRN S leep, Start date: 04/13/17 7:53:00 PROPERTY SUPERVISOR, Duration: 30 day, Stop date: 05/13/17 7: 52:00 PROPERTY SUPERVISOR Notes: (Same As: Shauna) Start Date: 04/13/17 Stop Date: 04/15/17 Status: Discontinued Results BLOOD BANK RESULTS 1 2 3 Most recent to oldest [Reference Range]: O NEG *Unknown* (04/13/17 4:08 PM) O NEG *Unknown* (04/10/17 2:47 PM) ABO/Rh Positive 1 (04/10/17 2:47 PM) Antibody Scrn Rhig Anti-D *Unknown* (04/10/17 2:47 PM) AB Int Blood Bank Physician Service The patient is a 36 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 Immunohematologic testing demonstrates the presence of an anti-D in this patient s serum. This antibody is directed against the D antigen of the "Rh" blood group system and is typically IgG in nature. Although usually considered clinically significant, the presence of this antibody most likely represents passive immunization due to Rh Immune Globulin administration (by history given at 27 weeks gestation). Should RBC transfusion be required, Rh-negative crossmatch-compatible units will be issued. No difficulty in obtaining compatible blood is expected. The patient s electronic medical record has been reviewed for relevant information. I have reviewed the test results and concur with the resident Dr. Guillory s interpretation. CPT: 50691-SB *NA* (04/10/17 2:47 PM) Path AB Neg (04/13/17 4:08 PM) FS Pt Product available (04/13/17 4:05 PM) Product available (04/13/17 3:59 PM) Rhig 1Result Comment: 04/10/2017 16:56 [id number] "Significant Findings of Positive Antibody Screen_ called to Rehana Ortega_ at 0 04/10/2017 16:55_ by TG_. Read Back OK" ELECTROLYTES 1 2 3 Most recent to oldest [Reference Range]: 138 mEq/L (04/10/17 2:47 PM) Sodium Lvl [135-145 mEq/L] 3.2 mEq/L *LOW* (04/10/17 2:47 PM) Potassium Lvl [3.5-5.1 mEq/L] 103 mEq/L (04/10/17 2:47 PM) Chloride Lvl [95-109 mEq/L] 24 mEq/L (04/10/17 2:47 PM) CO2 [24-32 mEq/L] 14.2 mEq/L (04/10/17 2:47 PM) AGAP [10.0-20.0 mEq/L] CHEM PANEL 1 2 3 Most recent to oldest [Reference Range]: 0.57 mg/dL (04/11/17 4:01 AM) 0.68 mg/dL (04/10/17 2:47 PM) Creatinine Lvl [0.50-1.40 mg/dL] 120 mL/min/1.73m2 1 *NA* (04/11/17 4:01 AM) 113 mL/min/1.73m2 2 *NA* (04/10/17 2:47 PM) eGFR 6 mg/dL *LOW* (04/10/17 2:47 PM) BUN [7-22 mg/dL] 9 (04/10/17 2:47 PM) B/C Ratio [6-25] 97 mg/dL (04/10/17 2:47 PM) Glucose Lvl [70-99 mg/dL] 4.7 mg/dL (04/11/17 4:01 AM) 4.7 mg/dL (04/10/17 2:47 PM) Uric Acid [2.5-7.0 mg/dL] 6.9 g/dL (04/10/17 2:47 PM) Total Protein [6.4-8.4 g/dL] 2.5 g/dL *LOW* (04/10/17 2:47 PM) Albumin Lvl [3.5-5.0 g/dL] 4.4 g/dL *HI* (04/10/17 2:47 PM) Globulin [2.7-4.2 g/dL] 0.6 *LOW* (04/10/17 2:47 PM) A/G Ratio [0.7-1.6] 9.8 mg/dL (04/10/17 2:47 PM) Calcium Lvl [8.5-10.5 mg/dL] 1.8 mg/dL (04/10/17 2:47 PM) Magnesium Lvl [1.8-2.4 mg/dL] 15 unit/L (04/11/17 4:01 AM) 20 unit/L (04/10/17 2:47 PM) ALT [0-65 unit/L] 13 unit/L (04/11/17 4:01 AM) 15 unit/L (04/10/17 2:47 PM) AST [0-37 unit/L] 149 unit/L *HI* (04/10/17 2:47 PM) Alk Phos [39-136 unit/L] 153 unit/L (04/11/17 4:01 AM) 169 unit/L (04/10/17 2:47 PM) LDH [98-192 unit/L] 0.2 mg/dL (04/10/17 2:47 PM) Bili Total [0.2-1.3 mg/dL] 1Result Comment: The eGFR is calculated using [...] be mul tiplied by the estimated BMI. URINE CHEM 1 2 3 Most recent to oldest [Reference Range]: 145.00 mg/dL *NA* (04/10/17 2:47 PM) U Creatinine 52.8 mg/dL *NA* (04/10/17 2:47 PM) U Protein 0.36 *NA* (04/10/17 2:47 PM) U Prot/Creat 196 mL/min *HI* (04/11/17 2:42 PM) U24 Cr Clear [88-128 mL/min] 46.40 mg/dL *NA* (04/11/17 2:42 PM) Ur Creat 1.95 *NA* (04/11/17 2:42 PM) BSA Cr Clear 212 lb 1 *NA* (04/11/17 2:42 PM) WT Crcl 62 inch 2 *NA* (04/11/17 2:42 PM) HT Crcl 3909 mL *HI* (04/11/17 2:42 PM) TV CrCl 24H [600-1600 mL] 1Result Comment: Weight taken on 04/10/2017. 2Result Comment: Height taken on 04/10/2017. IMMUNOLOGY 1 2 3 Most recent to oldest [Reference Range]: Non Reactive *NA* (04/10/17 2:47 PM) Treponemal Ab [Non Reactive] Negative *NA* (04/10/17 2:47 PM) HIV. [Negative] Negative *NA* (04/10/17 2:47 PM) Hep Bs Ag [Negative] HEMATOLOGY 1 2 3 Most recent to oldest [Reference Range]: 8.9 K/CMM (04/11/17 4:01 AM) 10.1 K/CMM (04/10/17 2:47 PM) WBC [3.7-10.4 K/CMM] 3.29 M/CMM *LOW* (04/11/17 4:01 AM) 3.68 M/CMM *LOW* (04/10/17 2:47 PM) RBC [4.20-5.40 M/CMM] 10.4 g/dL *LOW* (04/13/17 5:58 AM) 9.7 g/dL *LOW* (04/11/17 4:01 AM) 10.8 g/dL *LOW* (04/10/17 2:47 PM) Hgb [12.0-16.0 g/dL] 29.7 % *LOW* (04/13/17 5:58 AM) 27.5 % *LOW* (04/11/17 4:01 AM) 30.5 % *LOW* (04/10/17 2:47 PM) Hct [36.0-48.0 %] 83.4 fL (04/11/17 4:01 AM) 82.8 fL (04/10/17 2:47 PM) MCV [80.0-98.0 fL] 29.4 pg (04/11/17 4:01 AM) 29.4 pg (04/10/17 2:47 PM) MCH [27.0-31.0 pg] 35.3 g/dL (04/11/17 4:01 AM) 35.5 g/dL (04/10/17 2:47 PM) MCHC [32.0-36.0 g/dL] 14.5 % (04/11/17 4:01 AM) 14.1 % (04/10/17 2:47 PM) RDW [11.5-14.5 %] 8.2 fL (04/11/17 4:01 AM) 8.5 fL (04/10/17 2:47 PM) MPV [7.4-10.4 fL] 181 K/CMM (04/11/17 4:01 AM) 215 K/CMM (04/10/17 2:47 PM) Platelet [133-450 K/CMM] 69.1 % (04/11/17 4:01 AM) 75.8 % *HI* (04/10/17 2:47 PM) Segs [45.0-75.0 %] 21.5 % (04/11/17 4:01 AM) 16.6 % *LOW* (04/10/17 2:47 PM) Lymphocytes [20.0-40.0 %] 7.9 % (04/11/17 4:01 AM) 6.7 % (04/10/17 2:47 PM) Monocytes [2.0-12.0 %] 1.2 % (04/11/17 4:01 AM) 0.7 % (04/10/17 2:47 PM) Eosinophils [0.0-4.0 %] 0.3 % (04/11/17 4:01 AM) 0.2 % (04/10/17 2:47 PM) Basophils [0.0-1.0 %] 6.2 K/CMM (04/11/17 4:01 AM) 7.6 K/CMM (04/10/17 2:47 PM) Segs-Bands # [1.5-8.1 K/CMM] 1.9 K/CMM (04/11/17 4:01 AM) 1.7 K/CMM (04/10/17 2:47 PM) Lymphocytes # [1.0-5.5 K/CMM] 0.7 K/CMM (04/11/17 4:01 AM) 0.7 K/CMM (04/10/17 2:47 PM) Monocytes # [0.0-0.8 K/CMM] 0.1 K/CMM (04/11/17 4:01 AM) 0.1 K/CMM (04/10/17 2:47 PM) Eosinophils # [0.0-0.5 K/CMM] Immunizations Given and Recorded Vaccine Date Status Refusal Reason influenza virus vaccine, inactivated 04/15/17 Given RhoGam (MAR Charting)1 04/13/17 Given diphtheria/pertussis, acel/tetanus adult 04/13/17 Given 1Result 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
--- OUTSIDE RECORDS SUMMARY | 2018-05-11 19:54 | XMS REPORT | Continuity of Care Document ---
Author Author Parish haywood Organization Interface Address Unknown Phone Unavailable Problems Problem Status Onset Date Classification Date Reported Comments Source Precordial pain 06/29/2017 09/27/2017 [facility] Pre-existing hypertension with pre-eclampsia, complicating the puerperium 04/28/2017 07/28/2017 [facility] Pre-existing hypertension with pre-eclampsia, complicating childbirth 04/22/2017 07/22/2017 [facility] POST- HTN Active 04/18/2017 [facility] Resolved 04/10/2017 [facility] HYPERTENSION Active 04/10/2017 [facility] CHILD Active 03/01/2017 [facility] Gestational diabetes Active Problem 09/27/2017 [facility] Haywood,[facility] Hypertension Resolved Problem 09/27/2017 [facility]wood,[facility] Gestational hypertension Active Problem [facility] edema 07/28/2017 [facility] Unspecified pre-existing hypertension complicating the puerperium 07/28/2017 [facility] Other complications of the puerperium, not elsewhere classified 07/28/2017 [facility] Gestational diabetes mellitus in childbirth, controlled by oral hypoglycemic drugs 07/22/2017 [facility] Pre-existing essential hypertension complicating childbirth 07/22/2017 [facility] Single live 07/22/2017 [facility] Secondary uterine inertia 07/22/2017 [facility] 34 weeks gestation of 07/22/2017 [facility] Obstructed labor due to fetopelvic disproportion, unspecified 07/22/2017 [facility] Encounter for immunization 07/22/2017 [facility] Medications Medication Details Route Status Patient Instructions Ordering Provider Order Date Source 24 HR Nifedipine 90 MG Extended Release Tablet [Procardia] 90 mg=1 tab, PO, Daily, 0 Refill(s) Active 04/21/2017 [facility] 24 HR Nifedipine 90 MG Extended Release Tablet [Procardia] 90 mg, 1 tab, Route: PO, Drug form: ERTAB, Daily, Dosing Weight 93.182, kg, Start date: 04/21/17 9:00:00 CONSULTING ANALYST, Duration: 30 day, Stop date: 05/20/17 9:00:00 CSTNotes: (Same as: Adalat CC,Procardia XL) "Do Not Crush" "Avoid grapefruit and grapefruit juice" Inactive 04/21/2017 [facility] labetalol 200 mg oral tablet 200 mg=1 tab, PO, Q8H, # 180 tab, 1 Refill(s), Pharmacy: [facility] [place] #3 Active 04/21/2017 [facility] Labetalol 200 mg, 1 tab, Route: PO, Drug form: TAB, Q8H, Dosing Weight 93.182, kg, Start date: 04/20/17 16:00:00 CONSULTING ANALYST, Duration: 30 day, Stop date: 05/20/17 8:00:00 CSTNotes: With food. (Same as:Trandate, Normodyne) No Longer Active 04/20/2017 [facility] Nifedical XL 30 mg, 1 tab, Route: PO, Drug form: ERTAB, ONCE, Dosing Weight 93.182, kg, Priority: STAT, Start date: 04/20/17 8:50:00 CONSULTING ANALYST, Stop date: 04/20/17 8:50:00 CSTNotes: (Same as: Adalat CC, Procardia XL) Give on empty stomach. Take 1 hour before or 2 hours after meal; "Avoid grapefruit and grapefruit juice". Do not crush Inactive 04/20/2017 [facility] Nifedical XL 60 mg, 1 tab, Route: PO, Drug form: ERTAB, Daily, Dosing Weight 93.182, kg, Start date: 04/19/17 9:00:00 CONSULTING ANALYST, Duration: 30 day, Stop date: 05/18/17 9:00:00 CSTNotes: (Same as: Adalat CC, Procardia XL) Give on empty stomach. Take 1 hour before or 2 hours after meal; "Avoid grapefruit and grapefruit juice". Do not crush No Longer Active 04/19/2017 [facility] Lasix 20 mg, 2 mL, Route: IVP, Drug form: INJ, ONCE, Dosing Weight 93.182, kg, Start date: 04/18/17 9:06:00 CONSULTING ANALYST, Stop date: 04/18/17 9:06:00 CSTNotes: (Same as: Lasix) Inactive 04/18/2017 [facility] Aspirin 81 MG Enteric Coated Tablet 81 mg, 1 tab, Route: PO, Drug form: ECTAB, Daily, Dosing Weight 93.182, kg, Start date: 04/18/17 9:00:00 CONSULTING ANALYST, Duration: 30 day, Stop date: 05/17/17 9:00:00 CSTNotes: Do not crush or chew. (Same As: Ecotrin) No Longer Active 04/18/2017 [facility] Labetalol 100 mg, 1 tab, Route: PO, Drug form: TAB, TID, Dosing Weight 93.182, kg, Start date: 04/18/17 9:00:00 CONSULTING ANALYST, Duration: 30 day, Stop date: 05/17/17 17:00:00 CSTNotes: With food. (Same as:Trandate, Normodyne) No Longer Active 04/18/2017 [facility] Saline Flush 0.9% 10 ml, Route: IVP, Drug Form: INJ, Dosing Weight 93.182, kg, Q12H, Start date: 04/18/17 9:00:00 CONSULTING ANALYST, Duration: 30 day, Stop date: 05/17/17 21:00:00 CSTNotes: (Same as: BD Posiflush) No Longer Active 04/18/2017 [facility] Multivitamins oral tablet 1 tab, Route: PO, Drug Form: TAB, Dosing Weight 93.182, kg, Daily, Start date: 04/18/17 9:00:00 CONSULTING ANALYST, Duration: 30 day, Stop date: 05/17/17 9:00:00 CONSULTING ANALYST No Longer Active 04/18/2017 [facility] LR IV 1,000 mL 1,000 mL, Rate: 40 ml/hr, Infuse over: 25 hr, Route: IV, Dosing Weight 93.182 kg, Total Volume: 1,000, Start date: 04/18/17 8:25:00 CONSULTING ANALYST, Duration: 30 day, Stop date: 05/18/17 8:24:00 CONSULTING ANALYST, 2.07, m2 No Longer Active 04/18/2017 [facility] Ibuprofen 600 mg, 1 tab, Route: PO, Drug form: TAB, Q6H, Dosing Weight 93.182, kg, Start date: 04/18/17 6:00:00 CONSULTING ANALYST, Duration: 30 day, Stop date: 05/18/17 0:00:00 CSTNotes: (Same as: Motrin) "Do Not Crush" Take with food. No Longer Active 04/18/2017 [facility] Methyldopa 500 MG Oral Tablet 500 mg, 2 tab, Route: PO, Drug form: TAB, TID, Dosing Weight 93.182, kg, Priority: STAT, Start date: 04/18/17 3:50:00 CONSULTING ANALYST, Duration: 30 day, Stop date: 05/17/17 17:00:00 CSTNotes: May interfere w/enteral feedings. (Same as:Aldomet) No Longer Active 04/18/2017 [facility] M-M-R II 0.5 mL, Route: SUB-Q, Drug Form: PDR/INJ, Dosing Weight 93.182, kg, ONCALL, Start date: 04/18/17 3:00:00 CONSULTING ANALYST, Duration: 1 doses or timesNotes: (Same as: M-M-R II) (zvwylvh-iuesk-nsfvesl virus vaccine 0.5 ml INJ VL) WASTE: F/P - Red; E -Red GIVE PRIOR TO DISCHARGE No Longer Active 04/18/2017 [facility] 0.5 ML Bordetella pertussis filamentous hemagglutinin vaccine, inactivated 0.01 MG/ML / Bordetella pertussis fimbriae 2/3 vaccine, inactivated 0.01 MG/ML / Bordetella pertussis pertactin vaccine, inactivated 0.006 MG/ML / Bordetella pertussis toxoid vacci 0.5 mL, Route: IM, Drug Form: SUSP, Dosing Weight 93.182, kg, ONCALL, Start date: 04/18/17 3:00:00 CONSULTING ANALYST, Duration: 1 doses or timesNotes: (Tdap ) For Adolecent and Adult use For IM Use. Same as: Adacel (Tdap) No Longer Active 04/18/2017 [facility] Misoprostol 1,000 microgram, 5 tab, Route: AR, Drug form: TAB, ONCALL, Dosing Weight 93.182, kg, Start date: 04/18/17 3:00:00 CONSULTING ANALYST, Duration: 30 day, Stop date: 05/18/17 2:59:00 CSTNotes: (Same as:Cytotec) Take with food No Longer Active 04/18/2017 [facility] Methylergonovine 0.2 mg, 1 mL, Route: IM, Drug form: INJ, ONCALL, Dosing Weight 93.182, kg, Start date: 04/18/17 3:00:00 CONSULTING ANALYST, Duration: 30 day, Stop date: 05/18/17 2:59:00 CSTNotes: (Same as:Methergine) No Longer Active 04/18/2017 [facility] Carboprost 250 microgram, 1 mL, Route: IM, Drug form: INJ, ONCALL, Dosing Weight 93.182, kg, Start date: 04/18/17 3:00:00 CONSULTING ANALYST, Duration: 30 day, Stop date: 05/18/17 2:59:00 CSTNotes: (Same As: Hemabate) No Longer Active 04/18/2017 [facility] Acetaminophen 325 MG / Hydrocodone Bitartrate 5 MG Oral Tablet 1 tab, Route: PO, Drug Form: TAB, Dosing Weight 93.182, kg, Q4H, PRN Pain Score 4-6, Start date: 04/18/17 2:41:00 CONSULTING ANALYST, Duration: 30 day, Stop date: 05/18/17 2:40:00 CSTNotes: (Same as: Encinal 325/5) Do not exceed 4gm/day of acetaminophen. No Longer Active 04/18/2017 [facility] Acetaminophen 325 MG / Hydrocodone Bitartrate 10 MG Oral Tablet 1 tab, Route: PO, Dosing Weight 93.182, kg, Q4H, PRN Pain Score 7-10, Start date: 04/18/17 2:41:00 CONSULTING ANALYST, Duration: 30 day, Stop date: 05/18/17 2:40:00 CONSULTING ANALYST Inactive 04/18/2017 [facility] Saline Flush 0.9% 10 ml, Route: IVP, Drug Form: INJ, Dosing Weight 93.182, kg, PRN, PRN Line Flush, Start date: 04/18/17 2:41:00 CONSULTING ANALYST, Duration: 30 day, Stop date: 05/18/17 2:40:00 CSTNotes: (Same as: BD Posiflush) No Longer Active 04/18/2017 [facility] zolpidem 5 mg, 1 tab, Route: PO, Drug form: TAB, Bedtime, Dosing Weight 93.182, kg, PRN Insomnia, Start date: 04/18/17 2:41:00 CONSULTING ANALYST, Duration: 30 day, Stop date: 05/18/17 2:40:00 CSTNotes: (Same As: Ambien) No Longer Active 04/18/2017 [facility] Acetaminophen 650 mg, Route: PO, Drug form: TAB, Q4H, Dosing Weight 93.182, kg, PRN Other -See Comment, Start date: 04/18/17 2:41:00 CONSULTING ANALYST, Duration: 30 day, Stop date: 05/18/17 2:40:00 CONSULTING ANALYST Inactive 04/18/2017 [facility] Simethicone 160 mg, 2 tab, Route: PO, Drug form: CHEWTAB, Q8H, Dosing Weight 93.182, kg, PRN Gas, Start date: 04/18/17 2:41:00 CONSULTING ANALYST, Duration: 30 day, Stop date: 05/18/17 2:40:00 CSTNotes: (Same as: Mylicon) No Longer Active 04/18/2017 [facility] lanolin topical cream 1 appl, Route: TOP, PRN, Drug form: OINT, PRN Other -See Comment, Start date: 04/18/17 2:41:00 CONSULTING ANALYST, Duration: 30 day, Stop date: 05/18/17 2:40:00 CSTNotes: (Same as:Lanolin) No Longer Active 04/18/2017 [facility] Bisacodyl 10 mg, 1 supp, Route: AR, Drug form: SUPP, PRN, Dosing Weight 93.182, kg, PRN Other -See Comment, Start date: 04/18/17 2:41:00 CONSULTING ANALYST, Duration: 30 day, Stop date: 05/18/17 2:40:00 CSTNotes: (Same As: Dulcolax, Bisco-Lax) No Longer Active 04/18/2017 [facility] Docusate 100 mg, 1 cap, Route: PO, Drug form: CAP, BID, Dosing Weight 93.182, kg, PRN Constipation, Start date: 04/18/17 2:41:00 CONSULTING ANALYST, Duration: 30 day, Stop date: 05/18/17 2:40:00 CSTNotes: (Same as: Colace) (Do Not Crush) No Longer Active 04/18/2017 [facility] Morphine 2 mg, Route: IVP, Q2H, Dosing Weight 93.182, kg, PRN Pain Score 7-10, Start date: 04/18/17 2:41:00 CONSULTING ANALYST, Duration: 30 day, Stop date: 05/18/17 2:40:00 CONSULTING ANALYST Inactive 04/18/2017 [facility] Ondansetron 4 mg, 2 mL, Route: IVP, Drug form: INJ, Q8H, Dosing Weight 93.182, kg, PRN Nausea & Vomiting, Start date: 04/18/17 2:41:00 CONSULTING ANALYST, Duration: 30 day, Stop date: 05/18/17 2:40:00 CSTNotes: (Same as: Tisha) MEDICATION WASTE Product Size: 4 mg Product Wasted: ___ mg No Longer Active 04/18/2017 [facility] Metoclopramide 10 mg, 2 mL, Route: IVP, Drug form: INJ, Q6H, Dosing Weight 93.182, kg, PRN Nausea & Vomiting, Start date: 04/18/17 2:41:00 CONSULTING ANALYST, Duration: 30 day, Stop date: 05/18/17 2:40:00 CSTNotes: (Same as: Reglan) No Longer Active 04/18/2017 [facility] Oxytocin 30 unit, 500 mL, Rate: 42 ml/hr, Infuse over: 11.9 hr, Dosing Weight 93.182, kg, Route: IV, Total Volume: 500 mL, Start date: 04/18/17 2:41:00 CONSULTING ANALYST, Duration: 1 doses or times, Stop date: 04/18/17 14:34:00 CONSULTING ANALYST, Replace Every: 11.9 hr Inactive 04/18/2017 [facility] Terbutaline 0.25 mg, 0.25 mL, Route: SUB-Q, Drug form: INJ, ONCALL, Dosing Weight 93.182, kg, PRN Other -See Comment, Start date: 04/18/17 2:41:00 CONSULTING ANALYST, Duration: 1 doses or times, Stop date: Limited # of timesNotes: DO NOT USE IN CARBIDE TOOL MAKER AREA (Same As: Brethine) No Longer Active 04/18/2017 [facility] Citric Acid / sodium citrate 30 mL, Route: PO, Drug Form: SOLN, Dosing Weight 93.182, kg, ONCE, Start date: 04/18/17 2:41:00 CONSULTING ANALYST, Stop date: 04/18/17 2:41:00 CSTNotes: (Same As: Bicitra) No Longer Active 04/18/2017 [facility] Calcium Gluconate 1 gm, 10 mL, Route: IVP, Drug form: INJ, ONCE, Dosing Weight 93.182, kg, PRN Other -See Comment, Start date: 04/18/17 2:37:00 CSTNotes: WASTE: F/P - Sink; E - Municipal Trash Bin No Longer Active 04/18/2017 [facility] Magnesium Sulfate 500 mL, Rate: 50 ml/hr, Infuse over: 10 hr, Route: IV, Dosing Weight 93.182 kg, Total Volume: 500, Start date: 04/18/17 2:37:00 CONSULTING ANALYST, Duration: 30 day, Stop date: 05/18/17 2:36:00 CONSULTING ANALYST, 2.07, h2Gmkyr: (Same as: MgSO4) WASTE: F/P - Sink; E - Municipal Trash Bin No Longer Active 04/18/2017 [facility] PNV-Total 1 cap, PO, Daily, 0 Refill(s) No Longer Active 04/18/2017 [facility] Aspirin 81 MG Enteric Coated Tablet 81 mg=1 tab, PO, Daily, # 90 tab, 3 Refill(s) No Longer Active 04/18/2017 [facility] labetalol 100 mg oral tablet 100 mg=1 tab, PO, TID, # 60 tab, 0 Refill(s) No Longer Active 04/18/2017 [facility] Labetalol 20 mg, 4 mL, Route: IVP, Drug form: INJ, ONCE, Dosing Weight 93.182, kg, Start date: 04/18/17 2:33:00 CONSULTING ANALYST, Stop date: 04/18/17 2:33:00 CONSULTING ANALYST Inactive 04/18/2017 [facility] Methyldopa 500 MG Oral Tablet 500 mg, 2 tab, Route: PO, Drug form: TAB, TID, Dosing Weight 96.364, kg, Start date: 04/15/17 13:00:00 CONSULTING ANALYST, Duration: 30 day, Stop date: 05/15/17 9:00:00 CSTNotes: May interfere w/enteral feedings. (Same as:Aldomet) Inactive 04/15/2017 [facility] Methyldopa 500 MG Oral Tablet 500 mg=1 tab, PO, TID, # 90 tab, 0 Refill(s), Pharmacy: [facility] [place] [facility]3 No Longer Active 04/15/2017 [facility] Morphine 2 mg, 1 mL, Route: IVP, Drug form: INJ, Q2H, Dosing Weight 96.364, kg, PRN Pain Score 7-10, Start date: 04/15/17 11:11:00 CONSULTING ANALYST, Duration: 30 day, Stop date: 05/15/17 11:10:00 CSTNotes: (Same as:MORPhine Sulfate) Inactive 04/15/2017 [facility] Ondansetron 4 mg, 2 mL, Route: IVP, Drug form: INJ, Q8H, Dosing Weight 96.364, kg, PRN Nausea & Vomiting, Start date: 04/15/17 11:11:00 CONSULTING ANALYST, Duration: 30 day, Stop date: 05/15/17 11:10:00 CSTNotes: (Same as: Zofran) MEDICATION WASTE Product Size: 4 mg Product Wasted: ___ mg Inactive 04/15/2017 [facility] influenza virus vaccine, inactivated 0.5 mL, Route: IM, Drug Form: SUSP, Daily, Start date: 04/15/17 9:05:00 CONSULTING ANALYST, Duration: 1 doses or times, Stop date: 04/15/17 9:05:00 CSTNotes: (Same as: Fluzone Quadrivalent, Fluarix Quadrivalent) For 3 years of age and older (0.5 mL IM) Shake well before use Inactive 04/15/2017 [facility] RhoGam (MAR Charting) 300 microgram, Route: IM, ONCE, Dosing Weight 96.364, kg, Start date: 04/13/17 15:58:00 CONSULTING ANALYST, Stop date: 04/13/17 15:58:00 CONSULTING ANALYST No Longer Active 04/13/2017 [facility] acetaminophen-hydrocodone 325 mg-5 mg oral tablet 1 tab, Route: PO, Drug Form: TAB, Dosing Weight 96.364, kg, Q4H, PRN Pain Score 4-6, Start date: 04/13/17 12:01:00 CONSULTING ANALYST, Duration: 30 day, Stop date: 05/13/17 12:00:00 CSTNotes: (Same as: Encinal 325/5) Do not exceed 4gm/day of acetaminophen. No Longer Active 04/13/2017 [facility] acetaminophen-hydrocodone 325 mg-10 mg oral tablet 1 tab, Route: PO, Drug Form: TAB, Dosing Weight 96.364, kg, Q4H, PRN Pain Score 7-10, Start date: 04/13/17 12:01:00 CONSULTING ANALYST, Duration: 30 day, Stop date: 05/13/17 12:00:00 CSTNotes: Do not exceed 4gm/day of acetaminophen. (Same as: Encinal 325/10) No Longer Active 04/13/2017 [facility] Tylenol 650 mg, 2 tab, Route: PO, Drug form: TAB, Q4H, Dosing Weight 96.364, kg, PRN Other -See Comment, Start date: 04/13/17 12:01:00 CONSULTING ANALYST, Duration: 30 day, Stop date: 05/13/17 12:00:00 CSTNotes: Do not exceed 4 gm/day. (Same as: Tylenol) No Longer Active 04/13/2017 [facility] Ibuprofen 600 mg, 1 tab, Route: PO, Drug form: TAB, Q6H, Dosing Weight 96.364, kg, Start date: 04/13/17 12:00:00 CONSULTING ANALYST, Duration: 30 day, Stop date: 05/13/17 6:00:00 CSTNotes: (Same as: Motrin) "Do Not Crush" Take with food. No Longer Active 04/13/2017 [facility] Multivitamins oral tablet 1 tab, Route: PO, Drug Form: TAB, Dosing Weight 96.364, kg, Daily, Start date: 04/13/17 9:00:00 CONSULTING ANALYST, Duration: 30 day, Stop date: 05/12/17 9:00:00 CONSULTING ANALYST No Longer Active 04/13/2017 [facility] M-M-R II 0.5 mL, Route: SUB-Q, Drug Form: PDR/INJ, Dosing Weight 96.364, kg, ONCALL, Give only if patient rubella non-immune, Start date: 04/13/17 8:00:00 CONSULTING ANALYST, Duration: 1 doses or timesNotes: (Same as: M-M-R II) (kvkgrvc-ndxwc-vaoclrx virus vaccine 0.5 ml INJ VL) WASTE: F/P - Red; E -Red GIVE PRIOR TO DISCHARGE No Longer Active 04/13/2017 [facility] 0.5 ML Bordetella pertussis filamentous hemagglutinin vaccine, inactivated 0.01 MG/ML / Bordetella pertussis fimbriae 2/3 vaccine, inactivated 0.01 MG/ML / Bordetella pertussis pertactin vaccine, inactivated 0.006 MG/ML / Bordetella pertussis toxoid vacci 0.5 mL, Route: IM, Drug Form: SUSP, Dosing Weight 96.364, kg, ONCALL, Start date: 04/13/17 8:00:00 CONSULTING ANALYST, Duration: 1 doses or timesNotes: (Tdap ) For Adolecent and Adult use For IM Use. Same as: Adacel (Tdap) No Longer Active 04/13/2017 [facility] Acetaminophen 325 MG / Hydrocodone Bitartrate 5 MG Oral Tablet 1 tab, Route: PO, Drug Form: TAB, Dosing Weight 96.364, kg, Q4H, PRN Pain Score 4-6, Start date: 04/13/17 7:53:00 CONSULTING ANALYST, Duration: 30 day, Stop date: 05/13/17 7:52:00 CSTNotes: (Same as: Encinal 325/5) Do not exceed 4gm/day of acetaminophen. No Longer Active 04/13/2017 [facility] Acetaminophen 325 MG / Hydrocodone Bitartrate 10 MG Oral Tablet 1 tab, Route: PO, Drug Form: TAB, Dosing Weight 96.364, kg, Q4H, PRN Pain Score 7-10, Start date: 04/13/17 7:53:00 CONSULTING ANALYST, Duration: 30 day, Stop date: 05/13/17 7:52:00 CSTNotes: Do not exceed 4gm/day of acetaminophen. (Same as: Encinal 325/10) No Longer Active 04/13/2017 [facility] Methylergonovine 0.2 mg, 1 mL, Route: IM, Drug form: INJ, PRN, Dosing Weight 96.364, kg, PRN Other -See Comment, Start date: 04/13/17 7:53:00 CONSULTING ANALYST, Duration: 30 day, Stop date: 05/13/17 7:52:00 CSTNotes: (Same as:Methergine) No Longer Active 04/13/2017 [facility] Benzocaine 200 MG/ML Topical [place] [Dermoplast] 1 spray, Route: TOP, PRN, Drug form: SPRY, PRN Irritation, Start date: 04/13/17 7:53:00 CONSULTING ANALYST, Duration: 30 day, Stop date: 05/13/17 7:52:00 CSTNotes: (Same As: Dermoplast) WASTE: Aerosol - Return to Pharmacy FOR EXTERNAL USE ONLY No Longer Active 04/13/2017 [facility] zolpidem 5 mg, 1 tab, Route: PO, Drug form: TAB, Bedtime, Dosing Weight 96.364, kg, PRN Sleep, Start date: 04/13/17 7:53:00 CONSULTING ANALYST, Duration: 30 day, Stop date: 05/13/17 7:52:00 CSTNotes: (Same As: Ambien) No Longer Active 04/13/2017 [facility] lanolin topical 1 appl, Route: TOP, PRN, Drug form: OINT, PRN Other -See Comment, Start date: 04/13/17 7:53:00 CONSULTING ANALYST, Duration: 30 day, Stop date: 05/13/17 7:52:00 CSTNotes: (Same as:Lanolin) No Longer Active 04/13/2017 [facility] Bisacodyl 15 mg, 3 tab, Route: PO, Drug form: ECTAB, Daily, Dosing Weight 96.364, kg, PRN Other -See Comment, Start date: 04/13/17 7:53:00 CONSULTING ANALYST, Duration: 30 day, Stop date: 05/13/17 7:52:00 CSTNotes: (Same As: Dulcolax, Correctol) (Do Not Crush) "Do Not Crush" No Longer Active 04/13/2017 [facility] Ondansetron 4 mg, Route: IVP, Q8H, Dosing Weight 96.364, kg, PRN Nausea & Vomiting, Start date: 04/13/17 7:53:00 CONSULTING ANALYST, Duration: 30 day, Stop date: 05/13/17 7:52:00 CONSULTING ANALYST Inactive 04/13/2017 [facility] Docusate 100 mg, 1 cap, Route: PO, Drug form: CAP, BID, Dosing Weight 96.364, kg, PRN Constipation, Start date: 04/13/17 7:53:00 CONSULTING ANALYST, Duration: 30 day, Stop date: 05/13/17 7:52:00 CSTNotes: (Same as: Colace) (Do Not Crush) No Longer Active 04/13/2017 [facility] Lactated Ringers IV 1,000 mL 1,000 mL, Rate: 100 ml/hr, Infuse over: 10 hr, Route: IV, Dosing Weight 96.364 kg, Total Volume: 1,000, Start date: 04/13/17 7:53:00 CONSULTING ANALYST, Duration: 30 day, Stop date: 05/13/17 7:52:00 CONSULTING ANALYST, 2.09, m2 No Longer Active 04/13/2017 [facility] Oxytocin 30 unit, 500 mL, Rate: 42 ml/hr, Infuse over: 11.9 hr, Dosing Weight 96.364, kg, Route: IV, Total Volume: 500 mL, Start date: 04/13/17 7:53:00 CONSULTING ANALYST, Duration: 2 day, Stop date: 04/15/17 7:52:00 CONSULTING ANALYST, Replace Every: 11.9 hr No Longer Active 04/13/2017 [facility] Labetalol 300 mg, 1 tab, Route: PO, Drug form: TAB, TID, Dosing Weight 96.364, kg, Start date: 04/12/17 18:00:00 CONSULTING ANALYST, Duration: 30 day, Stop date: 05/12/17 10:00:00 CSTNotes: With food. (Same as:Trandate, Normodyne) No Longer Active 04/13/2017 [facility] Ibuprofen 600 mg, 1 tab, Route: PO, Drug form: TAB, Q6H, Dosing Weight 96.364, kg, Start date: 04/12/17 18:00:00 CONSULTING ANALYST, Duration: 30 day, Stop date: 05/12/17 12:00:00 CSTNotes: (Same as: Motrin) "Do Not Crush" Take with food. No Longer Active 04/13/2017 [facility] M-M-R II 0.5 mL, Route: SUB-Q, Drug Form: PDR/INJ, Dosing Weight 96.364, kg, ONCALL, Start date: 04/12/17 18:00:00 CONSULTING ANALYST, Duration: 1 doses or timesNotes: (Same as: M-M-R II) (mthjppw-zakem-xckhwzj virus vaccine 0.5 ml INJ VL) WASTE: F/P - Red; E -Red GIVE PRIOR TO DISCHARGE No Longer Active 04/13/2017 [facility] Acetaminophen 325 MG / Hydrocodone Bitartrate 5 MG Oral Tablet 1 tab, Route: PO, Drug Form: TAB, Dosing Weight 96.364, kg, Q4H, PRN Pain Score 4-6, Start date: 04/12/17 17:03:00 CONSULTING ANALYST, Duration: 30 day, Stop date: 05/12/17 17:02:00 CSTNotes: (Same as: Encinal 325/5) Do not exceed 4gm/day of acetaminophen. Inactive 04/12/2017 [facility] Acetaminophen 325 MG / Hydrocodone Bitartrate 10 MG Oral Tablet 1 tab, Route: PO, Drug Form: TAB, Dosing Weight 96.364, kg, Q4H, PRN Pain Score 7-10, Start date: 04/12/17 17:03:00 CONSULTING ANALYST, Duration: 30 day, Stop date: 05/12/17 17:02:00 CSTNotes: Do not exceed 4gm/day of acetaminophen. (Same as: Encinal 325/10) Inactive 04/12/2017 [facility] zolpidem 5 mg, 1 tab, Route: PO, Drug form: TAB, Bedtime, Dosing Weight 96.364, kg, PRN Insomnia, Start date: 04/12/17 17:03:00 CONSULTING ANALYST, Duration: 30 day, Stop date: 05/12/17 17:02:00 CSTNotes: (Same As: Shauna) No Longer Active 04/12/2017 [facility] Docusate 100 mg, 1 cap, Route: PO, Drug form: CAP, BID, Dosing Weight 96.364, kg, PRN Constipation, Start date: 04/12/17 17:03:00 CONSULTING ANALYST, Duration: 30 day, Stop date: 05/12/17 17:02:00 CSTNotes: (Same as: Colace) (Do Not Crush) No Longer Active 04/12/2017 [facility] lanolin topical cream 1 appl, Route: TOP, PRN, Drug form: OINT, PRN Other -See Comment, Start date: 04/12/17 17:03:00 CONSULTING ANALYST, Duration: 30 day, Stop date: 05/12/17 17:02:00 CONSULTING ANALYST No Longer Active 04/12/2017 [facility] Acetaminophen 650 mg, 2 tab, Route: PO, Drug form: TAB, Q4H, Dosing Weight 96.364, kg, PRN Other -See Comment, Start date: 04/12/17 17:03:00 CONSULTING ANALYST, Duration: 30 day, Stop date: 05/12/17 17:02:00 CSTNotes: Do not exceed 4 gm/day. (Same as: Tylenol) Inactive 04/12/2017 [facility] Benzocaine / Menthol 1 lozenge, Route: PO, Drug Form: NGA, Dosing Weight 96.364, kg, PRN, PRN Sore Throat, Start date: 04/12/17 17:03:00 CONSULTING ANALYST, Duration: 30 day, Stop date: 05/12/17 17:02:00 CSTNotes: Cepacol lozenges Dispense 1 box=16 lozenges (Same As: Cepacol Lozenges) No Longer Active 04/12/2017 [facility] Simethicone 160 mg, 2 tab, Route: PO, Drug form: CHEWTAB, Q8H, Dosing Weight 96.364, kg, PRN Gas, Start date: 04/12/17 17:03:00 CONSULTING ANALYST, Duration: 30 day, Stop date: 05/12/17 17:02:00 CSTNotes: (Same as: Mylicon) No Longer Active 04/12/2017 [facility] Bisacodyl 10 mg, 1 supp, Route: AR, Drug form: SUPP, PRN, Dosing Weight 96.364, kg, PRN Other -See Comment, Start date: 04/12/17 17:03:00 CONSULTING ANALYST, Duration: 30 day, Stop date: 05/12/17 17:02:00 CSTNotes: (Same As: Dulcolax, Bisco-Lax) No Longer Active 04/12/2017 [facility] Oxytocin 30 unit, 500 mL, Rate: 42 ml/hr, Infuse over: 11.9 hr, Dosing Weight 96.364, kg, Route: IV, Total Volume: 500 mL, Start date: 04/12/17 17:03:00 CONSULTING ANALYST, Duration: 2 day, Stop date: 04/14/17 17:02:00 CONSULTING ANALYST, Replace Every: 11.9 hr No Longer Active 04/12/2017 [facility] Lactated Ringers IV 1,000 mL 1,000 mL, Rate: 100 ml/hr, Infuse over: 10 hr, Route: IV, Dosing Weight 96.364 kg, Total Volume: 1,000, Start date: 04/12/17 17:03:00 CONSULTING ANALYST, Duration: 30 day, Stop date: 05/12/17 17:02:00 CONSULTING ANALYST, 2.09, m2 No Longer Active 04/12/2017 [facility] Labetalol 100 mg, 1 tab, Route: PO, Drug form: TAB, TID, Dosing Weight 96.364, kg, Start date: 04/12/17 17:00:00 CONSULTING ANALYST, Duration: 30 day, Stop date: 05/12/17 13:00:00 CSTNotes: With food. (Same as:Trandate, Normodyne) Inactive 04/12/2017 [facility] Methyldopa 500 MG Oral Tablet 500 mg, 2 tab, Route: PO, Drug form: TAB, TID, Dosing Weight 96.364, kg, Start date: 04/12/17 17:00:00 CONSULTING ANALYST, Duration: 30 day, Stop date: 05/12/17 13:00:00 CSTNotes: May interfere w/enteral feedings. (Same as:Aldomet) No Longer Active 04/12/2017 [facility] Naloxone 0.4 mg, 1 mL, Route: IVP, Drug form: INJ, ONCALL, Dosing Weight 96.364, kg, Start date: 04/12/17 17:00:00 CONSULTING ANALYST, Duration: 24 hr, Stop date: 04/13/17 16:59:00 CSTNotes: Same as Narcan No Longer Active 04/12/2017 [facility] phenylephrine (ANES) Route: IVP, Drug form: INJ, ONCE, Stop date: 04/12/17 16:44:00 CONSULTING ANALYST Inactive 04/12/2017 [facility] ondansetron ([facility]) Route: IV, Drug form: INJ, ONCE, Stop date: 04/12/17 16:32:00 CONSULTING ANALYST Inactive 04/12/2017 [facility] succinylcholine ([facility]) Route: IV, Drug form: INJ, ONCE, Stop date: 04/12/17 16:32:00 CONSULTING ANALYST Inactive 04/12/2017 [facility] propofol ([facility]) Route: IV, Drug form: INJ, ONCE, Stop date: 04/12/17 16:32:00 CONSULTING ANALYST Inactive 04/12/2017 [facility] morphine Sulfate ([facility]) Route: EPIDURAL, Drug form: INJ, ONCE, Stop date: 04/12/17 16:27:00 CONSULTING ANALYST Inactive 04/12/2017 [facility] Pitocin ([facility]) Route: IV, Drug form: SOLN, ONCE, Stop date: 04/12/17 16:27:00 CONSULTING ANALYST Inactive 04/12/2017 [facility] Acetaminophen 1,000 mg, 2 tab, Route: PO, Drug form: TAB, Q6H, Dosing Weight 96.364, kg, Priority: NOW, Start date: 04/12/17 16:04:00 CONSULTING ANALYST, Duration: 24 hr, Stop date: 04/13/17 12:00:00 CSTNotes: Max acetaminophen 4000 mg/day (4 gm/day). (Same as: Tylenol Extra Strength) No Longer Active 04/12/2017 [facility] Promethazine 6.25 mg, 0.25 mL, Route: IVPB, Drug form: INJ, Q6H, Dosing Weight 96.364, kg, PRN Nausea & Vomiting, Start date: 04/12/17 16:04:00 CONSULTING ANALYST, Duration: 24 hr, Stop date: 04/13/17 16:03:00 CSTNotes: Do not give IV push. (Same as: Phenergan) No Longer Active 04/12/2017 [facility] Dexamethasone 4 mg, 1 mL, Route: IVP, Drug form: INJ, Q6H, Dosing Weight 96.364, kg, PRN Nausea & Vomiting, Start date: 04/12/17 16:04:00 CONSULTING ANALYST, Duration: 24 hr, Stop date: 04/13/17 16:03:00 CSTNotes: Concentration: 4mg/ml No Longer Active 04/12/2017 [facility] Meperidine 12.5 mg, 0.5 mL, Route: IVP, Drug form: INJ, ONCE, Dosing Weight 96.364, kg, Start date: 04/12/17 16:04:00 CONSULTING ANALYST, Stop date: 04/12/17 16:04:00 CSTNotes: (Same as: Demerol) "Use Precaution in Elderly, Seizure disorders, and Renal impairment" No Longer Active 04/12/2017 [facility] Diphenhydramine 12.5 mg, 5 mL, Route: PO, Drug form: LIQ, Q6H, Dosing Weight 96.364, kg, PRN Itching, Start date: 04/12/17 16:04:00 CONSULTING ANALYST, Duration: 30 day, Stop date: 05/12/17 16:03:00 CSTNotes: (Same as: Benadryl) No Longer Active 04/12/2017 [facility] Naloxone 0.1 mg, 0.25 mL, Route: SUB-Q, Drug form: INJ, Q6H, Dosing Weight 96.364, kg, PRN Itching, Start date: 04/12/17 16:04:00 CONSULTING ANALYST, Duration: 24 hr, Stop date: 04/13/17 16:03:00 CSTNotes: Same as Narcan No Longer Active 04/12/2017 [facility] Ondansetron 4 mg, 2 mL, Route: IVP, Drug form: INJ, Q6H, Dosing Weight 96.364, kg, PRN Nausea & Vomiting, Start date: 04/12/17 16:04:00 CONSULTING ANALYST, Duration: 24 hr, Stop date: 04/13/17 16:03:00 CSTNotes: (Same as: Zofran) MEDICATION WASTE Product Size: 4 mg Product Wasted: ___ mg No Longer Active 04/12/2017 [facility] Morphine 2 mg, 0.5 mL, Route: IVP, Drug form: INJ, Q4H, Dosing Weight 96.364, kg, PRN Pain Score 7-10, Start date: 04/12/17 16:04:00 CONSULTING ANALYST, Duration: 30 day, Stop date: 05/12/17 16:03:00 CSTNotes: (Same as:MORPhine Sulfate) No Longer Active 04/12/2017 [facility] Ketorolac 30 mg, 1 mL, Route: IVP, Drug form: INJ, Q6H, Dosing Weight 96.364, kg, PRN Pain Score 4-6, Start date: 04/12/17 16:04:00 CONSULTING ANALYST, Duration: 24 hr, Stop date: 04/13/17 16:03:00 CSTNotes: (Same as:Toradol) IV bolus must be given >15 seconds. Give IM administration slowly and deeply into the muscle. Not for use > 4 days MEDICATION WASTE Product Size: 30 mg Product Wasted: ___ mg No Longer Active 04/12/2017 [facility] azithromycin (ANES) 500 mg Route: IV, Drug form: INJ, Start date: 04/12/17 16:02:00 CONSULTING ANALYST, Stop date: 04/12/17 17:02:00 CONSULTING ANALYST Inactive 04/12/2017 [facility] acetaminophen (ANES) 10 mg Route: IV, Drug form: INJ, Start date: 04/12/17 15:54:00 CONSULTING ANALYST, Stop date: 04/12/17 16:54:00 CONSULTING ANALYST Inactive 04/12/2017 [facility] Pitocin (ANES) 30 unit + Route: IV, Drug form: SOLN, Dosing Weight 96.4, kg, Start date: 04/12/17 15:43:00 CONSULTING ANALYST, Stop date: 04/12/17 16:43:00 CONSULTING ANALYST Inactive 04/12/2017 [facility] sodium citrate (ANES) Route: PO, Drug Form: INJ, ONCE, Stop date: 04/12/17 15:42:00 CONSULTING ANALYST Inactive 04/12/2017 [facility] metoclopramide (ANES) Route: IV, Drug form: INJ, ONCE, Stop date: 04/12/17 15:42:00 CONSULTING ANALYST Inactive 04/12/2017 [facility] lidocaine (ANES) Route: EPIDURAL, Drug form: INJ, ONCE, Stop date: 04/12/17 15:42:00 CONSULTING ANALYST Inactive 04/12/2017 [facility] sodium bicarbonate (ANES) Route: EPIDURAL, Drug form: INJ, ONCE, Stop date: 04/12/17 15:42:00 CONSULTING ANALYST Inactive 04/12/2017 [facility] ceFAZolin (ANES) Route: IV, Drug form: INJ, ONCE, Stop date: 04/12/17 15:42:00 CONSULTING ANALYST Inactive 04/12/2017 [facility] famotidine (ANES) Route: IV, Drug form: INJ, ONCE, Stop date: 04/12/17 15:42:00 CONSULTING ANALYST Inactive 04/12/2017 [facility] Lactated Ringers Injection IV (ANES) 1000 mL Route: IV, Total Volume: 1,000, Start date: 04/12/17 14:40:00 CONSULTING ANALYST, Stop date: 04/12/17 15:40:00 CONSULTING ANALYST Inactive 04/12/2017 [facility] D5LR 1,000 mL 1,000 mL, Rate: 125 ml/hr, Infuse over: 8 hr, Route: IV, Dosing Weight 96.364 kg, Total Volume: 1,000, Start date: 04/12/17 13:09:00 CONSULTING ANALYST, Duration: 30 day, Stop date: 05/12/17 13:08:00 CONSULTING ANALYST, 2.09, m2 No Longer Active 04/12/2017 [facility] Oxytocin 30 unit, 500 mL, Rate: Titrate, Dosing Weight 96.364, kg, Route: IV, Total Volume: 500 mL, Start date: 04/12/17 9:28:00 CONSULTING ANALYST, Duration: 2 day, Stop date: 04/14/17 9:27:00 CONSULTING ANALYST, Replace Every: 24 hr Inactive 04/12/2017 [facility] Remove - dinoprostone (Cervidil) insert 1 ea, Route: VAG, Drug Form: INS, Dosing Weight 96.364, kg, ONCALL, Start date: 04/12/17 9:00:00 CONSULTING ANALYST, Duration: 30 day, Stop date: 05/12/17 8:59:00 CSTNotes: Vaginal insert: to be removed 1 hour prior to oxytocin administration or 12 hours after insertion. Inactive 04/12/2017 [facility] Oxytocin 30 unit, 500 mL, Rate: Titrate, Dosing Weight 96.364, kg, Route: IV, Total Volume: 500 mL, Start date: 04/12/17 8:00:00 CONSULTING ANALYST, Duration: 2 day, Stop date: 04/14/17 7:59:00 CONSULTING ANALYST, Replace Every: 24 hr Inactive 04/12/2017 [facility] Penicillin G 2,500,000 unit, 50 mL, Route: IVPB, Drug form: INJ, ABXQ4H, Dosing Weight 96.364, kg, Start date: 04/12/17 0:00:00 CONSULTING ANALYST, Duration: 30 day, Stop date: 05/11/17 20:00:00 CONSULTING ANALYST Inactive 04/12/2017 [facility] Carboprost 250 microgram, 1 mL, Route: IM, Drug form: INJ, ONCALL, Dosing Weight 96.364, kg, Start date: 04/11/17 21:00:00 CONSULTING ANALYST, Duration: 30 day, Stop date: 05/11/17 20:59:00 CSTNotes: (Same As: Hemabate) No Longer Active 04/12/2017 [facility] Methylergonovine 0.2 mg, 1 mL, Route: IM, Drug form: INJ, ONCALL, Dosing Weight 96.364, kg, Start date: 04/11/17 21:00:00 CONSULTING ANALYST, Duration: 30 day, Stop date: 05/11/17 20:59:00 CSTNotes: (Same as:Methergine) No Longer Active 04/12/2017 [facility] Citric Acid / sodium citrate 30 mL, Route: PO, Drug Form: SOLN, Dosing Weight 96.364, kg, ONCALL, Start date: 04/11/17 21:00:00 CONSULTING ANALYST, Duration: 30 day, Stop date: 05/11/17 20:59:00 CSTNotes: (Same As: Bicitra) No Longer Active 04/12/2017 [facility] Famotidine 20 mg, 2 mL, Route: IVP, Drug form: INJ, ONCALL, Dosing Weight 96.364, kg, Start date: 04/11/17 21:00:00 CONSULTING ANALYST, Duration: 30 day, Stop date: 05/11/17 20:59:00 CSTNotes: (Same as: Pepcid) Can be dilute in 5-10cc NS IVP: Slow IV push over at least 2 minutes. No Longer Active 04/12/2017 [facility] Misoprostol 1,000 microgram, 5 tab, Route: AR, Drug form: TAB, ONCALL, Dosing Weight 96.364, kg, Start date: 04/11/17 21:00:00 CONSULTING ANALYST, Duration: 1 doses or timesNotes: (Same as:Cytotec) Take with food No Longer Active 04/12/2017 [facility] Cervidil 10 mg, 1 supp, Route: VAG, Drug form: SUPP, ONCE, Dosing Weight 96.364, kg, Start date: 04/11/17 20:34:00 CONSULTING ANALYST, Stop date: 04/11/17 20:34:00 CSTNotes: (Same as: Cervidil) Inactive 04/12/2017 [facility] Lidocaine Hydrochloride 10 MG/ML Injectable Solution 200 mg, 20 mL, Route: PERCUT, Drug Form: INJ, Dosing Weight 96.364, kg, PRN, PRN Other -See Comment, Start date: 04/11/17 20:34:00 CONSULTING ANALYST, Duration: 1 doses or times, Stop date: Limited # of timesNotes: (Same as: Xylocaine) No Longer Active 04/12/2017 [facility] Terbutaline 0.25 mg, 0.25 mL, Route: SUB-Q, Drug form: INJ, PRN, Dosing Weight 96.364, kg, PRN Other -See Comment, Start date: 04/11/17 20:34:00 CONSULTING ANALYST, Duration: 1 doses or times, Stop date: Limited # of timesNotes: DO NOT USE IN CARBIDE TOOL MAKER AREA (Same As: Brethine) No Longer Active 04/12/2017 [facility] Ondansetron 4 mg, 2 mL, Route: IVP, Drug form: INJ, Q8H, Dosing Weight 96.364, kg, PRN Nausea & Vomiting, Start date: 04/11/17 20:34:00 CONSULTING ANALYST, Duration: 30 day, Stop date: 05/11/17 20:33:00 CSTNotes: (Same as: Zofran) MEDICATION WASTE Product Size: 4 mg Product Wasted: ___ mg No Longer Active 04/12/2017 [facility] Acetaminophen 325 MG / Hydrocodone Bitartrate 5 MG Oral Tablet 2 tab, Route: PO, Drug Form: TAB, Dosing Weight 96.364, kg, Q4H, PRN Pain Score 7-10, Start date: 04/11/17 20:34:00 CONSULTING ANALYST, Duration: 30 day, Stop date: 05/11/17 20:33:00 CSTNotes: (Same as: Encinal 325/5) Do not exceed 4gm/day of acetaminophen. No Longer Active 04/12/2017 [facility] Ibuprofen 600 mg, 1 tab, Route: PO, Drug form: TAB, Q6H, Dosing Weight 96.364, kg, PRN Other -See Comment, Start date: 04/11/17 20:34:00 CONSULTING ANALYST, Duration: 30 day, Stop date: 05/11/17 20:33:00 CSTNotes: (Same as: Motrin) "Do Not Crush" Take with food. No Longer Active 04/12/2017 [facility] Butorphanol 2 mg, 1 mL, Route: IVP, Drug form: INJ, Q2H, Dosing Weight 96.364, kg, PRN Pain Score 7-10, Start date: 04/11/17 20:34:00 CONSULTING ANALYST, Duration: 30 day, Stop date: 05/11/17 20:33:00 CSTNotes: (Same As: Stadol) MEDICATION WASTE Product Size: 2 mg Product Wasted: ___ mg No Longer Active 04/12/2017 [facility] Lactated Ringers IV 1,000 mL 1,000 mL, Rate: 125 ml/hr, Infuse over: 8 hr, Route: IV, Dosing Weight 96.364 kg, Total Volume: 1,000, Start date: 04/11/17 20:34:00 CONSULTING ANALYST, Duration: 30 day, Stop date: 05/11/17 20:33:00 CONSULTING ANALYST, 2.09, m2 No Longer Active 04/12/2017 [facility] Oxytocin 30 unit, 500 mL, Rate: 42 ml/hr, Infuse over: 11.9 hr, Dosing Weight 96.364, kg, Route: IV, Total Volume: 500 mL, Start date: 04/11/17 20:34:00 CONSULTING ANALYST, Duration: 2 day, Stop date: 04/13/17 20:33:00 CONSULTING ANALYST, Replace Every: 11.9 hr No Longer Active 04/12/2017 [facility] Calcium Chloride 0.0014 MEQ/ML / Potassium Chloride 0.004 MEQ/ML / Sodium Chloride 0.103 MEQ/ML / Sodium Lactate 0.028 MEQ/ML Injectable Solution 1,000 mL, 1,000 ml/hr, Infuse Over: 1 hr, Route: IV, 1,000, Drug form: INJ, ONCE, Dosing Weight 96.364 kg, Start date: 04/11/17 20:34:00 CONSULTING ANALYST, Stop date: 04/11/17 20:34:00 CONSULTING ANALYST, Bolus for regional anesthesia per unit protocol No Longer Active 04/12/2017 [facility] Penicillin G Potassium [id number] UNT/ML Injectable Solution 5,000,000 unit, Route: IVPB, Drug form: PDR/INJ, ONCALL, Dosing Weight 96.364, kg, Start date: 04/11/17 20:00:00 CONSULTING ANALYST, Duration: 30 day, Stop date: 05/11/17 19:59:00 CSTNotes: (Same as: Pfizerpen) MEDICATION WASTE Product Size: 5,000,000 unit Product Wasted: ___ unit Inactive 04/12/2017 [facility] Tylenol 650 mg, 2 tab, Route: PO, Drug form: TAB, Q6H, Dosing Weight 96.364, kg, PRN Pain Score 1-3, Start date: 04/11/17 15:47:00 CONSULTING ANALYST, Duration: 30 day, Stop date: 05/11/17 15:46:00 CSTNotes: Do not exceed 4 gm/day. (Same as: Tylenol) No Longer Active 04/11/2017 [facility] Aspirin 81 MG Enteric Coated Tablet 81 mg, 1 tab, Route: PO, Drug form: ECTAB, Daily, Dosing Weight 96.364, kg, Start date: 04/11/17 9:00:00 CONSULTING ANALYST, Duration: 30 day, Stop date: 05/10/17 9:00:00 CSTNotes: Do not crush or chew. (Same As: Ecotrin) No Longer Active 04/11/2017 [facility] Glyburide 5 mg, 1 tab, Route: PO, Drug form: TAB, Daily, Dosing Weight 96.364, kg, Start date: 04/11/17 9:00:00 CONSULTING ANALYST, Duration: 30 day, Stop date: 05/10/17 9:00:00 CSTNotes: Non-Formulary (Same as: Micronase, Diabeta) Take with meals. No Longer Active 04/11/2017 [facility] multivitamin, 1 tab, Route: PO, Drug Form: TAB, Dosing Weight 96.364, kg, Daily, Start date: 04/11/17 9:00:00 CONSULTING ANALYST, Duration: 30 day, Stop date: 05/10/17 9:00:00 CONSULTING ANALYST Inactive 04/11/2017 [facility] influenza virus vaccine, inactivated 0.5 mL, Route: IM, Drug Form: SUSP, Daily, Start date: 04/11/17 9:00:00 CONSULTING ANALYST, Duration: 1 doses or times, Stop date: 04/11/17 9:00:00 CSTNotes: (Same as: Fluzone Quadrivalent, Fluarix Quadrivalent) For 3 years of age and older (0.5 mL IM) Shake well before use No Longer Active 04/11/2017 [facility] Glyburide 5 mg, 1 tab, Route: PO, Drug form: TAB, BID, Dosing Weight 96.364, kg, Start date: 04/10/17 17:00:00 CONSULTING ANALYST, Duration: 30 day, Stop date: 05/10/17 9:00:00 CSTNotes: Non-Formulary (Same as: Micronase, Diabeta) Take with meals. No Longer Active 04/10/2017 [facility] Lactated Ringers IV 1,000 mL 1,000 mL, Rate: 125 ml/hr, Infuse over: 8 hr, Route: IV, Dosing Weight 96.364 kg, Total Volume: 1,000, Start date: 04/10/17 13:34:00 CONSULTING ANALYST, Duration: 30 day, Stop date: 05/10/17 13:33:00 CONSULTING ANALYST, 2.09, m2 No Longer Active 04/10/2017 [facility] Methyldopa 500 MG Oral Tablet 500 mg, 2 tab, Route: PO, Drug form: TAB, TID, Dosing Weight 96.364, kg, Start date: 04/10/17 13:00:00 CONSULTING ANALYST, Duration: 30 day, Stop date: 05/10/17 9:00:00 CSTNotes: May interfere w/enteral feedings. (Same as:Aldomet) No Longer Active 04/10/2017 [facility] Labetalol 100 mg, 1 tab, Route: PO, Drug form: TAB, TID, Dosing Weight 96.364, kg, Start date: 04/10/17 13:00:00 CONSULTING ANALYST, Duration: 30 day, Stop date: 05/10/17 9:00:00 CSTNotes: With food. (Same as:Trandate, Normodyne) No Longer Active 04/10/2017 [facility] Allergies, Adverse Reactions, Alerts Substance Category Reaction Severity Reaction type Status Date Reported Comments Source Immunizations Immunization Date Given Site Status Last Updated Comments Source influenza virus vaccine, inactivated 04/15/2017 Right Deltoid completed [facility]ing[facility]sup>1</sup> 04/14/2017 Right gluteus medius completed Veliz Result Comment: VERIF[facility] WITH NELDA POPE [facility] diphthe[facility]/pertuss[facility], acel/tetanus adult 04/13/2017 Right Deltoid completed [facility] Order Name Results Value Reference Range Date Interpretation Comments Source Chest 2 views DX Chest 2 views DX EXAM: XR CHEST 2 VIEWS DATE: 06/21/2017 INDICATION: - R07.2 Precordial pain COMPARISON: 03/31/2013 TECHNIQUE: PA and lateral chest radiographs FINDINGS: Lines and tubes: None. Lungs and pleura: No pulmonary or pleural based abnormality is identified. Heart and mediastinum: The heart size is normal for technique. The mediastinal contours are normal. Bones: No acute bony abnormality is identified. IMPRESSION: No acute cardiopulmonary abnormality. 06/21/2017 - - Read by: Nichole Mills MD Dictated Date/time: 06/21/17 16:51 Electronically Signed by: Nichole Mills MD 06/21/17 16:52 FINAL REPORT [facility] CHEM PANEL ALT 43 unit/L 0 - 65 04/19/2017 [facility] CHEM PANEL Uric Acid 8.1 mg/dL 2.5 - 7.0 04/19/2017 [facility] CHEM PANEL LDH 281 unit/L 98 - 192 04/19/2017 [facility] CHEM PANEL AST 18 unit/L 0 - 37 04/19/2017 [facility] CHEM PANEL Creatinine Lvl 0.80 mg/dL 0.50 - 1.40 04/19/2017 [facility] CHEM PANEL eGFR 96 mL/min/1.73m2 04/19/2017 Result Comment: The eGFR is calculated using the [...] from the National Kidney Disease Education Program (NKDEP) which additionally recommends that when the eGFR is used in patients with extremes of body mass index for purposes of drug dosing, the eGFR should be multiplied by the estimated BMI. [facility] HEMATOLOGY MCH 28.6 pg 27.0 - 31.0 04/19/2017 [facility] HEMATOLOGY RDW 14.4 % 11.5 - 14.5 04/19/2017 [facility] HEMATOLOGY MCHC 34.5 g/dL 32.0 - 36.0 04/19/2017 [facility] HEMATOLOGY Platelet 324 K/CMM 133 - 450 04/19/2017 [facility] HEMATOLOGY MPV 7.3 fL 7.4 - 10.4 04/19/2017 [facility] HEMATOLOGY Hct 31.3 % 36.0 - 48.0 04/19/2017 [facility] HEMATOLOGY MCV 82.9 fL 80.0 - 98.0 04/19/2017 [facility] HEMATOLOGY Hgb 10.8 g/dL 12.0 - 16.0 04/19/2017 [facility] HEMATOLOGY WBC 6.3 K/CMM 3.7 - 10.4 04/19/2017 [facility] HEMATOLOGY RBC 3.77 M/CMM 4.20 - 5.40 04/19/2017 [facility] HEMATOLOGY Monocytes # 0.7 K/CMM 0.0 - 0.8 04/19/2017 [facility] HEMATOLOGY Eosinophils # 0.3 K/CMM 0.0 - 0.5 04/19/2017 [facility] HEMATOLOGY Monocytes 11.1 % 2.0 - 12.0 04/19/2017 [facility] HEMATOLOGY Basophils 0.5 % 0.0 - 1.0 04/19/2017 [facility] HEMATOLOGY Eosinophils 4.0 % 0.0 - 4.0 04/19/2017 [facility] HEMATOLOGY Plt Morph Normal (04/19/17 6:42 AM) 04/19/2017 [facility] HEMATOLOGY Segs 61.7 % 45.0 - 75.0 04/19/2017 [facility] HEMATOLOGY RBC Morph Normal (04/19/17 6:42 AM) 04/19/2017 [facility] HEMATOLOGY Lymphocytes 22.7 % 20.0 - 40.0 04/19/2017 [facility] HEMATOLOGY Segs-Bands # 3.9 K/CMM 1.5 - 8.1 04/19/2017 [facility] HEMATOLOGY Lymphocytes # 1.4 K/CMM 1.0 - 5.5 04/19/2017 [facility] BLOOD BANK RESULTS Antibody Scrn Positive (04/18/17 2:56 AM) 04/18/2017 [facility] BLOOD BANK RESULTS ABO/Rh O NEG 04/18/2017 [facility] CHEM PANEL eGFR 92 mL/min/1.73m2 04/18/2017 Result Comment: The eGFR is calculated using the [...] from the National Kidney Disease Education Program (NKDEP) which additionally recommends that when the eGFR is used in patients with extremes of body mass index for purposes of drug dosing, the eGFR should be multiplied by the estimated BMI. [facility] CHEM PANEL Creatinine Lvl 0.82 mg/dL 0.50 - 1.40 04/18/2017 [facility] CHEM PANEL Uric Acid 7.5 mg/dL 2.5 - 7.0 04/18/2017 [facility] CHEM PANEL LDH 289 unit/L 98 - 192 04/18/2017 [facility] CHEM PANEL ALT 50 unit/L 0 - 65 04/18/2017 [facility] CHEM PANEL AST 33 unit/L 0 - 37 04/18/2017 [facility] HEMATOLOGY Monocytes 10.6 % 2.0 - 12.0 04/18/2017 [facility] HEMATOLOGY Lymphocytes 21.0 % 20.0 - 40.0 04/18/2017 [facility] HEMATOLOGY Toxic Gran slight 04/18/2017 [facility] HEMATOLOGY Polychrom slight 04/18/2017 [facility] HEMATOLOGY Monocytes # 0.9 K/CMM 0.0 - 0.8 04/18/2017 [facility] HEMATOLOGY Segs-Bands # 5.8 K/CMM 1.5 - 8.1 04/18/2017 [facility] HEMATOLOGY Eosinophils # 0.2 K/CMM 0.0 - 0.5 04/18/2017 [facility] HEMATOLOGY Lymphocytes # 1.9 K/CMM 1.0 - 5.5 04/18/2017 [facility] HEMATOLOGY Segs 65.3 % 45.0 - 75.0 04/18/2017 [facility] HEMATOLOGY Basophils 0.4 % 0.0 - 1.0 04/18/2017 [facility] HEMATOLOGY Eosinophils 2.7 % 0.0 - 4.0 04/18/2017 [facility] HEMATOLOGY Platelet 318 K/CMM 133 - 450 04/18/2017 [facility] HEMATOLOGY MPV 7.6 fL 7.4 - 10.4 04/18/2017 [facility] HEMATOLOGY RDW 14.4 % 11.5 - 14.5 04/18/2017 [facility] HEMATOLOGY MCHC 33.9 g/dL 32.0 - 36.0 04/18/2017 [facility] HEMATOLOGY MCV 84.0 fL 80.0 - 98.0 04/18/2017 [facility] HEMATOLOGY MCH 28.4 pg 27.0 - 31.0 04/18/2017 [facility] HEMATOLOGY WBC 8.8 K/CMM 3.7 - 10.4 04/18/2017 [facility] HEMATOLOGY Hgb 10.1 g/dL 12.0 - 16.0 04/18/2017 [facility] HEMATOLOGY RBC 3.56 M/CMM 4.20 - 5.40 04/18/2017 [facility] HEMATOLOGY Hct 29.9 % 36.0 - 48.0 04/18/2017 [facility] BLOOD BANK RESULTS SCREEN Neg (04/13/17 4:08 PM) 04/13/2017 [facility] BLOOD BANK RESULTS ABO/Rh O NEG 04/13/2017 [facility] BLOOD BANK RESULTS Rhig Product available (04/13/17 4:05 PM) 04/13/2017 [facility] BLOOD BANK RESULTS Rhig Product available (04/13/17 3:59 PM) 04/13/2017 [facility] HEMATOLOGY Hgb 10.4 g/dL 12.0 - 16.0 04/13/2017 [facility] HEMATOLOGY Hct 29.7 % 36.0 - 48.0 04/13/2017 [facility] URINE CHEM U24 Cr Clear 196 mL/min 88 - 128 04/11/2017 [facility] URINE CHEM Ur Creat 46.40 mg/dL 04/11/2017 [facility] URINE CHEM TV CrCl 24H 3909 mL 600 - 1600 04/11/2017 [facility] URINE CHEM WT Crcl 212 [lb_ap] 04/11/2017 Result Comment: Weight taken on 04/10/2017. [facility] URINE CHEM BSA Cr Clear 1.95 04/11/2017 [facility] URINE CHEM HT Crcl 62 [in_i] 04/11/2017 Result Comment: Height taken on 04/10/2017. [facility] CHEM PANEL AST 13 unit/L 0 - 37 04/11/2017 [facility] CHEM PANEL ALT 15 unit/L 0 - 65 04/11/2017 [facility] CHEM PANEL Creatinine Lvl 0.57 mg/dL 0.50 - 1.40 04/11/2017 [facility] CHEM PANEL eGFR 120 mL/min/1.73m2 04/11/2017 Result Comment: The eGFR is calculated using the [...] from the National Kidney Disease Education Program (NKDEP) which additionally recommends that when the eGFR is used in patients with extremes of body mass index for purposes of drug dosing, the eGFR should be multiplied by the estimated BMI. [facility] CHEM PANEL Uric Acid 4.7 mg/dL 2.5 - 7.0 04/11/2017 [facility] CHEM PANEL LDH 153 unit/L 98 - 192 04/11/2017 [facility] HEMATOLOGY MCH 29.4 pg 27.0 - 31.0 04/11/2017 [facility] HEMATOLOGY Hgb 9.7 g/dL 12.0 - 16.0 04/11/2017 [facility] HEMATOLOGY MCV 83.4 fL 80.0 - 98.0 04/11/2017 [facility] HEMATOLOGY Hct 27.5 % 36.0 - 48.0 04/11/2017 [facility] HEMATOLOGY MCHC 35.3 g/dL 32.0 - 36.0 04/11/2017 [facility] HEMATOLOGY MPV 8.2 fL 7.4 - 10.4 04/11/2017 [facility] HEMATOLOGY RDW 14.5 % 11.5 - 14.5 04/11/2017 [facility] HEMATOLOGY Platelet 181 K/CMM 133 - 450 04/11/2017 [facility] HEMATOLOGY RBC 3.29 M/CMM 4.20 - 5.40 04/11/2017 [facility] HEMATOLOGY WBC 8.9 K/CMM 3.7 - 10.4 04/11/2017 [facility] HEMATOLOGY Monocytes 7.9 % 2.0 - 12.0 04/11/2017 [facility] HEMATOLOGY Lymphocytes 21.5 % 20.0 - 40.0 04/11/2017 [facility] HEMATOLOGY Segs 69.1 % 45.0 - 75.0 04/11/2017 [facility] HEMATOLOGY Eosinophils # 0.1 K/CMM 0.0 - 0.5 04/11/2017 [facility] HEMATOLOGY Segs-Bands # 6.2 K/CMM 1.5 - 8.1 04/11/2017 [facility] HEMATOLOGY Monocytes # 0.7 K/CMM 0.0 - 0.8 04/11/2017 [facility] HEMATOLOGY Basophils 0.3 % 0.0 - 1.0 04/11/2017 [facility] HEMATOLOGY Eosinophils 1.2 % 0.0 - 4.0 04/11/2017 [facility] HEMATOLOGY Lymphocytes # 1.9 K/CMM 1.0 - 5.5 04/11/2017 [facility] BLOOD BANK RESULTS Path AB Blood Bank Physician ServiceThe patient is a 36 year old Rh-negative female, presenting for bi-weekly visit.Immunohematologic testing demonstrates the presence of an anti-D in this patients serum. This antibody is directed against the D antigen of the "Rh" blood group system and is typically IgG in nature. Although usually considered clinically significant, the presence of this antibody most likely represents passive immunization due to Rh Immune Globulin administration (by history given at 27 weeks gestation).Should RBC transfusion be required, Rh-negative crossmatch-compatible units will be issued. No difficulty in obtaining compatible blood is expected.The patients electronic medical record has been reviewed for relevant information.I have reviewed the test results and concur with the resident Dr. Copeland interpretation.CPT: [id number] 04/10/2017 [facility] BLOOD BANK RESULTS AB Int Rhig Anti-D 04/10/2017 [facility] BLOOD BANK RESULTS Antibody Scrn Positive 1 (04/10/17 2:47 PM) 04/10/2017 Result Comment: 04/10/2017 16:56 [id number] "Significant Findings of Positive Antibody Screen_ called to Rehana Ortega_ at 04/10/2017 16:55_ by TG_. Read Back OK" [facility] BLOOD BANK RESULTS ABO/Rh O NEG 04/10/2017 [facility] CHEM PANEL LDH 169 unit/L 98 - 192 04/10/2017 [facility] CHEM PANEL Uric Acid 4.7 mg/dL 2.5 - 7.0 04/10/2017 [facility] CHEM PANEL Magnesium Lvl 1.8 mg/dL 1.8 - 2.4 04/10/2017 [facility] CHEM PANEL eGFR 113 mL/min/1.73m2 04/10/2017 Result Comment: The eGFR is calculated using the [...] from the National Kidney Disease Education Program (NKDEP) which additionally recommends that when the eGFR is used in patients with extremes of body mass index for purposes of drug dosing, the eGFR should be multiplied by the estimated BMI. [facility] CHEM PANEL BUN 6 mg/dL 7 - 22 04/10/2017 [facility] CHEM PANEL Glucose Lvl 97 mg/dL 70 - 99 04/10/2017 [facility] CHEM PANEL Sodium Lvl 138 meq/L 135 - 145 04/10/2017 [facility] CHEM PANEL Potassium Lvl 3.2 meq/L 3.5 - 5.1 04/10/2017 [facility] CHEM PANEL Creatinine Lvl 0.68 mg/dL 0.50 - 1.40 04/10/2017 [facility] CHEM PANEL Calcium Lvl 9.8 mg/dL 8.5 - 10.5 04/10/2017 [facility] CHEM PANEL CO2 24 meq/L 24 - 32 04/10/2017 [facility] CHEM PANEL Chloride Lvl 103 meq/L 95 - 109 04/10/2017 [facility] CHEM PANEL Albumin Lvl 2.5 g/dL 3.5 - 5.0 04/10/2017 [facility] CHEM PANEL ALT 20 unit/L 0 - 65 04/10/2017 [facility] CHEM PANEL Total Protein 6.9 g/dL 6.4 - 8.4 04/10/2017 [facility] CHEM PANEL Alk Phos 149 unit/L 39 - 136 04/10/2017 [facility] CHEM PANEL AGAP 14.2 meq/L 10.0 - 20.0 04/10/2017 [facility] CHEM PANEL Bili Total 0.2 mg/dL 0.2 - 1.3 04/10/2017 [facility] CHEM PANEL AST 15 unit/L 0 - 37 04/10/2017 [facility] CHEM PANEL A/G Ratio 0.6 0.7 - 1.6 04/10/2017 [facility] CHEM PANEL B/C Ratio 9 6 - 25 04/10/2017 [facility] CHEM PANEL Globulin 4.4 g/dL 2.7 - 4.2 04/10/2017 [facility] HEMATOLOGY Segs-Bands # 7.6 K/CMM 1.5 - 8.1 04/10/2017 [facility] HEMATOLOGY Basophils 0.2 % 0.0 - 1.0 04/10/2017 [facility] HEMATOLOGY Eosinophils 0.7 % 0.0 - 4.0 04/10/2017 [facility] HEMATOLOGY Eosinophils # 0.1 K/CMM 0.0 - 0.5 04/10/2017 [facility] HEMATOLOGY Monocytes # 0.7 K/CMM 0.0 - 0.8 04/10/2017 [facility] HEMATOLOGY Lymphocytes # 1.7 K/CMM 1.0 - 5.5 04/10/2017 [facility] HEMATOLOGY Monocytes 6.7 % 2.0 - 12.0 04/10/2017 [facility] HEMATOLOGY Segs 75.8 % 45.0 - 75.0 04/10/2017 [facility] HEMATOLOGY Lymphocytes 16.6 % 20.0 - 40.0 04/10/2017 [facility] HEMATOLOGY MPV 8.5 fL 7.4 - 10.4 04/10/2017 [facility] HEMATOLOGY RDW 14.1 % 11.5 - 14.5 04/10/2017 [facility] HEMATOLOGY MCH 29.4 pg 27.0 - 31.0 04/10/2017 [facility] HEMATOLOGY Platelet 215 K/CMM 133 - 450 04/10/2017 [facility] HEMATOLOGY MCHC 35.5 g/dL 32.0 - 36.0 04/10/2017 [facility] HEMATOLOGY MCV 82.8 fL 80.0 - 98.0 04/10/2017 [facility] HEMATOLOGY Hct 30.5 % 36.0 - 48.0 04/10/2017 [facility] HEMATOLOGY RBC 3.68 M/CMM 4.20 - 5.40 04/10/2017 [facility] HEMATOLOGY Hgb 10.8 g/dL 12.0 - 16.0 04/10/2017 [facility] HEMATOLOGY WBC 10.1 K/CMM 3.7 - 10.4 04/10/2017 [facility] IMMUNOLOGY Treponemal Ab Non Reactive *NA* (04/10/17 2:47 PM) Non Reactive 04/10/2017 [facility] IMMUNOLOGY HIV. Negative *NA* (04/10/17 2:47 PM) Negative 04/10/2017 [facility] IMMUNOLOGY Hep Bs Ag Negative *NA* (04/10/17 2:47 PM) Negative 04/10/2017 [facility] URINE CHEM U Creatinine 145.00 mg/dL 04/10/2017 [facility] URINE CHEM U Protein 52.8 mg/dL 04/10/2017 [facility] URINE CHEM U Prot/Creat 0.36 04/10/2017 [facility] Vital Signs Vital Sign Value Date Comments Source Systolic (mm Hg) 138 04/21/2017 [facility] Diastolic (mm Hg) 88 04/21/2017 [facility] Heart Rate 73 04/21/2017 [facility] Temperature Oral (F) 97.6 F 04/21/2017 [facility] Respitory Rate 18 04/21/2017 [facility] Respitory Rate 18 04/21/2017 [facility] Systolic (mm Hg) 114 04/21/2017 [facility] Diastolic (mm Hg) 71 04/21/2017 [facility] Temperature Oral (F) 98.1 F 04/21/2017 [facility] Heart Rate 73 04/21/2017 [facility] Systolic (mm Hg) 135 04/21/2017 [facility] Diastolic (mm Hg) 79 04/21/2017 [facility] Temperature Oral (F) 98.1 F 04/21/2017 [facility] Heart Rate 80 04/21/2017 [facility] Respitory Rate 18 04/21/2017 [facility] BMI Calculated 36.39 04/18/2017 [facility] Height 160.02 cm 04/18/2017 [facility] Weight 93.182 04/18/2017 [facility] Temperature Oral (F) 98.2 F 04/15/2017 [facility] Respitory Rate 18 04/15/2017 [facility] Heart Rate 67 04/15/2017 [facility] Systolic (mm Hg) 120 04/15/2017 [facility] Diastolic (mm Hg) 82 04/15/2017 [facility] Respitory Rate 18 04/15/2017 [facility] Systolic (mm Hg) 132 04/15/2017 [facility] Diastolic (mm Hg) 87 04/15/2017 [facility] Heart Rate 81 04/15/2017 [facility] Temperature Oral (F) 97.4 F 04/15/2017 [facility] Systolic (mm Hg) 145 04/15/2017 [facility] Diastolic (mm Hg) 92 04/15/2017 [facility] Heart Rate 75 04/15/2017 [facility] Temperature Oral (F) 98.1 F 04/15/2017 [facility] Respitory Rate 18 04/15/2017 [facility] BMI Calculated 38.86 04/10/2017 [facility] Weight 96.364 04/10/2017 [facility] Height 157.48 cm 04/10/2017 [facility] Encounters Location Location Details Encounter Type Encounter Number Reason For Visit Attending Provider ADM Date DC Date Status Source [facility] Inpatient [id number] Ziad Melhem 04/10/2017 04/16/2017 [facility]patient [id number] Non Physician 04/18/2017 04/21/2017 [facility] [id number] Juan Bonds 06/21/2017 06/22/2017 [facility] Procedures Procedure Code Date Perfomer Comments Source Arm repair [id number] 03/27/1990 [facility] Arm repair [id number] 03/27/1990 [facility]
--- NOTE | 2018-05-11 21:17 | Diagnostic Imaging Report ---
EXAMINATION: CXR 2 VIEW - HOPD INDICATION: Cough. Chest and back pain. COMPARISON: None FINDINGS: TUBES and LINES: None. LUNGS: Lungs are well inflated. Lungs are clear. There is no evidence of pneumonia or pulmonary edema. PLEURA: No pleural effusion or pneumothorax. HEART AND MEDIASTINUM: The cardiomediastinal silhouette is unremarkable. BONES AND SOFT TISSUES: No acute osseous lesion. Soft tissues are unremarkable. UPPER ABDOMEN: No free air under the diaphragm. IMPRESSION: No acute thoracic abnormality. Signed by: DR. Abdiel Blake MD on 05/11/2018 9:13 PM
[2018-05-11 21:39] VITALS: BP 146/90
== END 2018-05-11 21:50 | disposition home or self-care (01) ==
LOC: FSED 19:50
DX: R05 Cough (principal); J20.9 Acute bronchitis, unspecified; J02.9 Acute pharyngitis, unspecified; I10 Essential (primary) hypertension
CPT/HCPCS: 71046; 80048; 83518; 85025; 87400; 99283

== ENCOUNTER 2020-04-04 00:09 | Emergency (ER) | payer OTHER ==
[~2020-04-04] VITALS: Ht 160 cm; Wt 84.4 kg
[2020-04-04] MEDS ORDERED: FAMOTIDINE 20 MG/2 ML VIAL IV STA (00:37)
[2020-04-04] MEDS ORDERED: SODIUM CHLORIDE 0.9% 1000ML 1,000 ML IV SCH (00:45)
[2020-04-04] MEDS ORDERED: FAMOTIDINE 20 MG/2 ML VIAL IV ONE (01:04)
[2020-04-04] MEDS ORDERED: SODIUM CHLORIDE 0.9% 1000ML 1,000 ML ONE (01:04)
[2020-04-04] MEDS ORDERED: KETOROLAC TROMETHAMINE 30 MG/ML VIAL IV STA (02:16)
[2020-04-04] MEDS ORDERED: KETOROLAC TROMETHAMINE 30 MG/ML VIAL ONE (02:23)
[2020-04-04] MEDS ORDERED: FAMOTIDINE20 MG PO (02:49)
[2020-04-04] MEDS ORDERED: ULTRAM 50MG50 MG PO (02:51)
== END 2020-04-04 03:15 | disposition home or self-care (01) ==
LOC: FSED 00:32
DX: K29.70 Gastritis, unspecified, without bleeding (principal); K62.5 Hemorrhage of anus and rectum; N83.201 Unspecified ovarian cyst, right side; R10.30 Lower abdominal pain, unspecified; R11.0 Nausea; I10 Essential (primary) hypertension
CPT/HCPCS: 74177; 80048; 80076; 81003; 81025; 82270; 85025; 99284; J1885; J7030

== ENCOUNTER 2024-09-23 17:16 | Emergency (ER) | payer OTHER ==
[~2024-09-23] VITALS: Ht 157.5 cm; Wt 65.8 kg
[~2024-09-23 17:16] MED LIST changes: +CRESTOR10 MG PO; +FAMOTIDINE20 MG PO; +LISINOPRIL10 MG PO; +ONDANSETRON ODT4 MG PO; +PROZAC20 MG PO; +ULTRAM 50MG50 MG PO
[2024-09-23 17:31] VITALS: PULSE 76; RESP 18; TEMP 97.5; O2SAT 100
[2024-09-23] MEDS ORDERED: PREDNISONE20 MG PO (17:38)
[2024-09-23] MEDS ORDERED: AZITHROMYCIN250 MG PO (17:38)
== END 2024-09-23 17:42 | disposition home or self-care (01) ==
LOC: FSED 17:23
DX: H92.02 Otalgia, left ear (principal); I10 Essential (primary) hypertension; E78.5 Hyperlipidemia, unspecified; F41.9 Anxiety disorder, unspecified; F32.A Depression, unspecified
CPT/HCPCS: 99284